=== PATIENT | male | born 1955 | race Caucasian/White ===

== ENCOUNTER 2016-10-24 23:04 | Observation (INO) | payer MEDICARE, OTHER ==
[~2016-10-24] VITALS: Ht 175.3 cm; Wt 100.0 kg
[~2016-10-24 23:04] MED LIST: EMTRTAB6 PO
[2016-10-24 23:17] VITALS: BP 150/92; PULSE 62; RESP 20; TEMP 97.7; O2SAT 96
[2016-10-24 23:49] VITALS: BP 150/92; PULSE 62; RESP 20; TEMP 97.7; O2SAT 95
--- NOTE | 2016-10-24 23:50 | PD ---
HPI Chief Complaint: Complaint Time Seen by Provider: 23:09 Travel History International Travel<30 days: No Contact w/Intl Traveler<30days: No History of Present Illness HPI The patient is 61 year old male who presents to the [facility] emergency department with a history of difficulty urinating that he reports began 2 days ago. He reports that he has had dribbling of urine as well as difficulty starting his stream of urine. The patient reports that he has a history of prostatitis in the past and urinary tract infections. The patient reports that he also has a history of kidney stones. Today around noon he began to have nausea and vomiting along with pain in the right side of his pelvis that radiates into the right groin, right testicle. He denies having any swelling associated with this. He reports that he became concerned that he may have a kidney stone and thus went to the [place] emergency department for evaluation and treatment. A workup ensued, however that facility had no ultrasound capability. The patient had continued intractable pain in spite of use of hydromorphone. There was a concern that the patient may have a testicular torsion, therefore the patient's transferred over for ultrasound and admission. The patient reports having had nausea and vomiting approximately 20 times today. He denies having any diarrhea. His last bowel movement was yesterday. The patient's history is, located by having HIV, however he was diagnosed in 1983 and has been on retroviral medications with a CD4 count that reportedly is 900-1000 and a viral load that is undetectable. The patient denies any recent fevers, cough, congestion, neck pain, chest pain, shortness of breath, or neurologic symptoms. 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 The patient had an inferior vena caval filter placed after that was discontinued off of his blood thinners. The patient has had kidney stones, prostatitis, urinary tract infections, history of HIV, history of a hydrocele status post surgical repair. Cardiac Catheterization: Yes Deep Vein Thrombosis: Yes (AND PE) Immune Disorder: Yes (HIV+) Inguinal Hernia: Yes Kidney Stones: Yes Neurologic: Yes (SUBDURAL HEMATOMA) Past Surgical History Narrative Surgical The patient's past surgical history is significant for bilateral inguinal hernia repair, IVC filter placement cholecystectomy, cardiac catheterization with stent placements, appendectomy, hydrocele removal. Appendectomy: Yes Body Medical Devices: IVC FILTER Cholecystectomy: Yes Coronary Stent: Yes (X8) Other Surgery: Yes (INGUINAL HERNIA REP W/ MESH) Social History Alcohol Use: No Tobacco Use: No Substance Use: No Allergies-Medications (Allergen,Severity, Reaction): Coded Allergies: Ativan (Verified Allergy, Severe, 10/24/16) Haldol (Verified Allergy, Severe, 10/24/16) Reglan (Verified Allergy, Severe, 10/24/16) Reported Meds & Prescriptions Reported Meds & Active Scripts Active Reported Complera (Qdpbzjzzniaod-Nnswkbmxuuh-Rgjrosmkk Disoprox) 200-25-300 Mg Tab 1 Tab PO DAILY Review of Systems Except as stated in HPI: all other systems reviewed are Neg General / Constitutional: Positive: Chills, No: Fever Eyes: No: Visual changes HENT: No: Headaches Cardiovascular: No: Chest Pain or Discomfort Respiratory: No: Shortness of Breath Gastrointestinal: Positive: Nausea, Vomiting, Abdominal Pain, No: Diarrhea, Hematemesis, Hematochezia, Constipation, Changes in Bowel Habits, Indigestion, Dysphagia, Loss of Appetite Genitourinary: Positive: Urgency, Frequency, Dysuria, Hesitancy, Dribbling Musculoskeletal: No: Pain Skin: No Rash Neurologic: No: Weakness, Focal Abnormalities, Change in Mentation, Slurred Speech, Sensory Disturbance Psychiatric: No: Depression Endocrine: No: Polydipsia Hematologic/Lymphatic: No: Easy Bruising Physical Exam Narrative General: The patient is a well-developed well-nourished male in no acute distress. Head and Neck exam: Head is normocephalic atraumatic. Eyes: EOMI, pupils are equal round and reactive to light. Nose: Midline septum with pink mucous membranes Mouth: Dentition unremarkable. Moist mucus membranes. Posterior oropharynx is not erythematous. No tonsillar hypertrophy. Uvula midline. Airway patent. Neck: No palpable lymphadenopathy. No nuchal rigidity. No thyromegaly. Cardiovascular: Regular rate and rhythm without murmurs, gallops, or rubs. Lungs: Clear to auscultation bilaterally. No wheezes, rhonchi, or rales. Abdomen: Soft, with tenderness on palpation along the right inguinal line, overlying an area of scar from prior inguinal hernia repair, no palpable recurrent hernia. No guarding, rebound, or rigidity. Normal bowel sounds are audible. No other tenderness on palpation of the other quadrants of the abdomen. Negative Parks' s sign. Extremities: No clubbing, cyanosis, or edema. 2+ pulses in all 4 extremities. No calf tenderness on palpation. Back: No costovertebral angle tenderness to palpation. Neurologic Exam: Grossly nonfocal. Skin Exam: No rash noted. Intact skin that is warm and dry. Genital exam: The patient on examination of the genital area has no evidence of swelling. The patient reports tenderness on palpation of the posterior aspect of the right testicle overlying the epididymis. There is no erythema, edema, or crepitus. There are no lesions or pointing. Data Data Last Documented VS Vital Signs Date Time Temp Pulse Resp B/P Pulse Ox O2 Delivery O2 Flow Rate FiO2 10/25/16 00:28 60 18 156/85 90 Room Air 10/24/16 23:49 97.7 Orders Sodium Chlor 0.9% 1000 Ml Inj (Ns 1000 M (10/25/16 00:15) Hydromorphone Pf Inj (Dilaudid Pf Inj) (10/25/16 00:15) Ondansetron Inj (Zofran Inj) (10/25/16 00:15) Cefepime Inj (Maxipime Inj) (10/25/16 00:01) Us Testicles W Doppler (10/25/16 23:08) Hydromorphone Pf Inj (Dilaudid Pf Inj) (10/25/16 01:45) Admit Order (Ed Use Only) (10/25/16 02:14) MDM Medical Decision Making Medical Screen Exam Complete: Yes Emergency Medical Condition: Yes Medical Record Reviewed: Yes Differential Diagnosis Epididymitis, versus prostatitis, versus hemorrhagic cystitis, versus testicular torsion, versus orchitis Narrative Course During the course of the patients emergency department visit, the patients history, examination, and differential diagnosis were reviewed with the patient. The patient had IV access obtained and blood work sent for analysis. The patient's electronic medical record was reviewed. The patient's evaluation at the [facility] emergency department was reviewed. The patient was noted to have a white count of 7.8, hemoglobin 17.8, platelets 188 with 56.4 neutrophils , monocytes 33.7, CMP is remarkable for a BUN of 12, creatinine 1.10, urinalysis reveals trace ketones, 6-8 wbc's rare clumps and bacteria many mucus , culture indicated. CT scan done at the other facility reveals no evidence of hydronephrosis or ureteral calculi identified. The patient was initially provided normal saline IV fluids, hydromorphone for pain, Zofran for nausea. The patient was given Cipro at the other facility. An ultrasound was ordered upon the patient's arrival to rule out testicular torsion. The patient was provided normal saline at 100 mL/h, hydromorphone 0.5 mg IV for recurrent pain, Zofran 4 mg IV. The patient reports that he had trouble tolerating the Cipro that was given IVreportedly experiencing chills and diaphoresis, therefore the antibiotic was changed to cefepime 2 g IV. This was administered in this emergency department. The patient's ultrasound of the scrotum reveals moderate size simple left hydrocele, no other acute abnormality. The patients results were discussed with the patient, including the plan of care. I explained that further testing and/ or monitoring is indicated based on the patients history, examination, and/ or laboratory findings. Therefore, I recommended admission for additional evaluation. The patient expressed understanding and was agreeable with this plan. The patient was admitted to the hospital in stable condition and [facility] Physician Communication Physician Communication The patient's case was discussed with , who did agree to admit the patient for further evaluation and treatment at this time. Diagnosis Primary Impression: Urinary tract infection Qualified Code: N39.0 - Urinary tract infection without hematuria, site unspecified Additional Impressions: Right groin pain Scrotal pain Admitting Information Admitting Physician Requests: Observation Rayna Clayton MD October 24, 2016 23:50
[2016-10-25] MEDS ORDERED: CEFEPIME INJ 2,000 MG in SODIUM CHLORIDE 0.9% INJ 100 ML IV STA (00:01)
[2016-10-25] MEDS ORDERED: ONDANSETRON HCL 4 MG/2 ML VIAL IV PUSH ONE (00:15)
[2016-10-25] MEDS ORDERED: SODIUM CHLOR 0.9% 1000 ML INJ 1,000 ML IV SCH (00:15)
[2016-10-25] MEDS ORDERED: HYDROmorphone HCL PF 1 MG/ML VIAL IV PUSH ONE ×2 (00:15→01:45)
[2016-10-25 00:28] VITALS: BP 156/85; PULSE 60; RESP 18; O2SAT 90
--- NOTE | 2016-10-25 02:01 | RADRPT ---
EXAM DATE/TIME: 10/25/2016 01:23 [facility] COMPARISON: No previous studies available for comparison. INDICATIONS : Right testicle pain. MEDICAL HISTORY : HIV. Renal calculi. Subdural hematoma. Deep vein thrombosis. Pulmonary emboli. Inguinal hernia. Prost atitis. SURGICAL HISTORY : Appendectomy. Cholecystectomy.Cardiac cath. Coronary stent x 8. Inguinal hernia repair with mesh. IVC filter. Hydrocele removal. ENCOUNTER: Initial ACUITY: 1 day PAIN SCORE: 10/10 LOCATION: Bilateral testicles. MEASUREMENTS: RIGHT TESTICLE: 4.6 x 3.0 x 2.7cm LEFT TESTICLE: 4.5 x 3.8 x 3.1cm FINDINGS: RIGHT TESTICLE: Homogeneous echotexture without intra or extratesticular mass. Blood flow is symmetric and within no rmal limits. No hydrocele or varicocele. Epididymis is within normal limits. A small focus of extra testicular calcification is seen. No mass. LEFT TESTICLE: Homogeneous echotexture without intra or extratesticular mass. Blood flow is symmetric and within no rmal limits. A moderate size left simple hydrocele. No varicocele. Epididymis is within normal limi ts. An 8 mm simple epididymal head cyst. SCROTUM: Within normal limits. CONCLUSION: 1. Moderate size simple left hydrocele. No acute abnormality. Tobias Wilson Jr., MD on October 25, 2016 at 1:58 Board Certified Radiologist. This report was verified electronically.
[2016-10-25] MEDS ORDERED: SODIUM CHLORIDE 0.9% FLUSH 10 ML FLUSH IV FLUSH PRN (03:00)
[2016-10-25] MEDS ORDERED: NALOXONE HCL 0.4 MG/ML AMP IV PRN (03:00)
[2016-10-25] MEDS ORDERED: oxyCODONE/ACETAMINOPHEN 5 MG/325 MG TAB PO PRN (03:00)
[2016-10-25] MEDS ORDERED: ONDANSETRON HCL 4 MG/2 ML VIAL IVP PRN (03:00)
[2016-10-25] MEDS ORDERED: ACETAMINOPHEN 325 MG TAB PO PRN (03:00)
--- NOTE | 2016-10-25 04:02 | HHI.HP ---
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 Patient reports that 2-3 days ago he started having difficult urinating had to sit and lean forward to pass urine. Yesterday patient started having increasing pain in scrotal pain R>L with radiation to right groin and into the lower back. Pain worse with coughing or movement. Only able to pass small amount of urine at a time. Patient does have associated nauseated with drinking fluids. Denies hematuria, fevers, chills, penile discharge, SOB or chest pain. Patient does not have a local urologist. 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 had subdural hematoma then IVF filter placed, cardiac stents x 8 , kidney stones 2012, December 2015 had parostitis with associated sepsis and hydrocele requiring surgical intervention Past Surgical History cholecystectomy appendectomy bilateral inguinal hernia repair with mesh IVC filter Reported Medications Complera (Irowjcvdqhjhq-Mpvjyrewnvv-Fpcueckzz Disoprox) 200-25-300 Mg Tab 1 Tab PO DAILY Allergies: Coded Allergies: Ativan (Verified Allergy, Severe, 10/24/16) Haldol (Verified Allergy, Severe, 10/24/16) Reglan (Verified Allergy, Severe, 10/24/16) Active Ordered Medications Current Medications Medications (Trade) Dose Ordered Sig/Jeremy Route Start Time Stop Time Status Last Admin (NS 1000 ml Inj) 1,000 ml @ 100 mls/hr Q10H IV 10/25/16 00:15 10/25/16 00:23 (NS Flush) 2 ml UNSCH PRN IV FLUSH 10/25/16 03:00 (NS Flush) 2 ml BID IV FLUSH 10/25/16 09:00 (Tylenol) 650 mg Q4H PRN PO 10/25/16 03:00 (Zofran Inj) 4 mg Q6H PRN IVP 10/25/16 03:00 (Narcan Inj) 0.4 mg UNSCH PRN IV 10/25/16 03:00 Oxycodone/ Acetaminophen 1 tab 1 tab Q4H PRN PO 10/25/16 03:00 (Cipro 400 Mg Premix) 200 ml @ 200 mls/hr Q12H IV 10/25/16 10:00 Family History grandfather and father had prostate CA. Family history also includes HTN, CAD, hyperlipidemia Social History ETOH- in college tobacco- denies Illicit drugs- denies Physical Exam Vital Signs Vital Signs Date Time Temp Pulse Resp B/P Pulse Ox O2 Delivery O2 Flow Rate FiO2 10/25/16 00:28 60 18 156/85 90 Room Air 10/24/16 23:49 97.7 62 20 150/92 95 10/24/16 23:17 97.7 62 20 150/92 96 10/24/16 23:17 62 20 Physical Exam GENERAL: This is a well-nourished, well-developed patient, appear to have pain out of proportion to exam SKIN: No rashes, ecchymoses or lesions. Cool and dry. HEAD: Atraumatic. Normocephalic. No temporal or scalp tenderness. EYES: Extraocular motions intact. No scleral icterus. No injection or drainage. CARDIOVASCULAR: Regular rate and rhythm without murmurs, gallops, or rubs. RESPIRATORY: Clear to auscultation. Breath sounds equal bilaterally. No wheezes , rales, or rhonchi. GASTROINTESTINAL: Abdomen soft, non-tender, nondistended. No hepato-splenomegaly , or palpable masses. No guarding. GENITOURINARY: severe scrotal pain worse with palpation. slight edema R testicle MUSCULOSKELETAL: Extremities without clubbing, cyanosis, or edema. No joint tenderness, effusion, or edema noted. No calf tenderness. Negative Homans sign bilaterally. NEUROLOGICAL: Awake and alert. Motor and sensory grossly within normal limits. Five out of 5 muscle strength in all muscle groups. Normal speech. Imaging Last Impressions Scrotum Ultrasound 10/25/16 8615 Signed Impressions: Service Date/Time: Tuesday, October 25, 2016 01:23 - CONCLUSION: 1. Moderate size simple left hydrocele. No acute abnormality. 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 Patient reports that 2-3 days ago he started having difficult urinating had to sit and lean forward to pass urine. Yesterday patient started having increasing pain in scrotal pain R>L with radiation to right groin and into the lower back. Prostatitis UTI Cefepime 2 grams x 1 in ER continue Ciprofloxacin IV Q12H consult urology Percocet and Toradol as needed for pain STAT scrotal US reveals: Moderate size simple left hydrocele. No acute abnormality. CT abdomin/Pelvic reveals: No evidence of kidney stone or hydronephrosis HIV- continue home medication DVT prophylasis with SCD/TEDs discussed with ER provider, nursing, patient and family member at bedside Written by Tiffanie Villagomez, acting as scribe for Dr. Díaz on 10/25/16 at 04 :18. This note was transcribed by scribe [Tiffanie Villagomez]. I, Dr. Adriane Díaz personally performed the history, physical exam, and medical decision making; and confirmed the accuracy of the information in the transcribed note. Authenticated by Dr. Adriane Díaz on 10/25/16 at 0420. Problem Qualifiers (1) Urinary tract infection: Qualified Code: N39.0 - Urinary tract infection without hematuria, site unspecified Tiffanie Villagomez October 25, 2016 04:02 Adriane Díaz MD October 25, 2016 07:38
[2016-10-25] MEDS ORDERED: KETOROLAC TROMETHAMINE 60 MG/2 ML (IM) VIAL IM PRN (04:15)
[2016-10-25 04:58] VITALS: BP 152/83; PULSE 57; RESP 16; O2SAT 97
[2016-10-25] MEDS ORDERED: EMTRICITABINE/TENOFOVIR 200 MG/300 MG TAB PO SCH (09:00)
[2016-10-25] MEDS ORDERED: TENOFOVIR DISOPROXIL FUMARATE PO SCH (09:00)
[2016-10-25] MEDS ORDERED: SODIUM CHLORIDE 0.9% FLUSH 10 ML FLUSH IV FLUSH SCH (09:00)
[2016-10-25] MEDS ORDERED: RILPIVIRINE PO SCH (09:00)
[2016-10-25] MEDS ORDERED: EMTRICITABINE PO SCH (09:00)
[2016-10-25] MEDS ORDERED: RILPIVIRINE 25 MG TAB PO SCH (09:00)
[2016-10-25] MEDS ORDERED: CIPROFLOXACIN 400 MG PREMIX 200 ML IV SCH (10:00)
[2016-12-14] MEDS ORDERED: EMTR1TAB2 PO (14:48)
[2016-12-14] MEDS ORDERED: HYDR-3288 PO (17:11)
[2016-12-14] MEDS ORDERED: ZANA2CAP PO (17:11)
== END 2016-10-25 05:38 | disposition left against medical advice (07) ==
LOC: NEPC 23:04 → NEDA 10-25 02:15 → NEPHCDU 10-25 05:10
PROVIDERS: ADMIT Family Medicine; ATTEND Family Medicine
DX: N39.0 Urinary tract infection, site not specified (principal); N41.0 Acute prostatitis; N50.82 Scrotal pain; Z86.711 Personal history of pulmonary embolism; Z21 Asymptomatic human immunodeficiency virus [HIV] infection status; Z86.718 Personal history of other venous thrombosis and embolism; Z88.8 Allergy status to other drugs, medicaments and biological substances
CPT/HCPCS: 74176; 76870; 80053; 81001; 85025; 87040; 87086; 93975; 96361; 96365; 96375; 96376; 99285; G0378; J0692; J0744; J1170; J1885; J2405; J7030

== ENCOUNTER 2016-12-22 21:50 | Observation (INO) | payer MEDICARE, OTHER ==
[~2016-12-22 21:50] MED LIST changes: +EMTR1TAB2 PO; -EMTRTAB6 PO; +HYDR-3288 PO; +ZANA2CAP PO
[2016-12-22] MEDS ORDERED: SODIUM CHLORIDE 0.9% FLUSH 10 ML FLUSH IV FLUSH PRN ×2 (23:45)
[2016-12-22] MEDS ORDERED: ACETAMINOPHEN 500 MG CPLT PO PRN (23:45)
[2016-12-22] MEDS ORDERED: ONDANSETRON HCL 4 MG/2 ML VIAL IV PRN (23:45)
[2016-12-23] MEDS ORDERED: NITROGLYCERIN 2% OINT 1 GM PACKET TOPICAL SCH
== END 2016-12-22 23:44 | disposition left against medical advice (07) ==
LOC: NEDDLT 21:50 → NEPFCDU 22:00
PROVIDERS: ADMIT Internal Medicine Interventional Cardiology; ATTEND Internal Medicine Interventional Cardiology
DX: R07.9 Chest pain, unspecified (principal); Z53.21 Procedure and treatment not carried out due to patient leaving prior to being seen by health care provider; R94.31 Abnormal electrocardiogram [ECG] [EKG]; R00.0 Tachycardia, unspecified
CPT/HCPCS: 70498; 71010; 71275; 74174; 80053; 80307; 82550; 83735; 83880; 84484; 85025; 85379; 85610; 85652; 85730; 93005; 96374; 99285; J1170; J2270; Q9967; 99281

== ENCOUNTER 2017-05-02 10:38 | Inpatient (IN) | payer MEDICARE, OTHER ==
[2017-05-02] VITALS (11 sets, daily range): BP systolic 127–189; BP diastolic 85–109; PULSE 53–78; RESP 16; TEMP 98–98.6; O2SAT 94–95
[~2017-05-02] VITALS: Ht 175.3 cm; Wt 90.2 kg
[~2017-05-02 10:38] MED LIST changes: +LOPE-1 PO; +TYLE325T PO
[2017-05-02] MEDS ORDERED: SODIUM CHLORIDE 0.9% FLUSH 10 ML FLUSH IV FLUSH PRN (11:00)
[2017-05-02] MEDS ORDERED: NALOXONE HCL 0.4 MG/ML AMP IV PUSH PRN (11:00)
[2017-05-02] MEDS ORDERED: ASPI-516 CHEW (12:42)
--- NOTE | 2017-05-02 13:10 | HHI.HP ---
[facility] Matt Vega MD Admission Diagnosis Diagnoses: History of Present Illness has 8 stents and numerous caths 8am woke up , drank water and had chest pain was uncomfortable most of the night dizzyy, 2-3 weeks sweats at night left arm adn tingling ' similar to previous no sob no radiation to back BP was high 200s/100s went to [place] right away sdh and gets migranes with ntg usually does not help on ntg drip adn did not help either morphine did last angiogram - more than a year- cardiology in [facility] usually stress test negative claims last time here was in december 2016 our visit showed - cdu admission that time had prostate problem - not getting blood flow to testicles, was afraid of torsion then- was transferred here from [place] then too, for [place] and no problem then - was ER to ER visit denies other symptoms 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 - but was taken off because of dizziness and bradycardia so not on any hypertensives Review of Systems Except as stated in HPI: all other systems reviewed are Neg Past Family Social History Past Medical History CAD - stents x 8 Sleep apnea dvts x 2 pex 1 hiv avascular necrosis bilateral femoral heads sciatica hydrocele repaired 20yrs ago neuropathy prostatitis hep B - was treated Past Surgical History balloon angioplasty 2014 renal stone bilateral hernia cardiac stents subdural hematoma , craniotomy 2012 from syncopal episode while on coumadin cholecystectomy partial exoslect feet hydrocele tarsal ivc filter Allergies: Coded Allergies: haloperidol (Unverified Allergy, Severe, Twitching, 05/02/17) lorazepam (Unverified Allergy, Severe, Confusion, 05/02/17) metoclopramide (Unverified Allergy, Severe, Nausea/Vomiting, 05/02/17) Family History htn, cholesterol, ppm, cad in general father- prostate cancer Social History never smoked, was exposed to second smoke ; 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 SKIN: No rashes, ecchymoses or lesions. Cool and dry. HEAD: Atraumatic. Normocephalic. No temporal or scalp tenderness. EYES: Pupils equal round and reactive. Extraocular motions intact. No scleral icterus. No injection or drainage. ENT: Nose without bleeding, purulent drainage or septal hematoma. Throat without erythema, tonsillar hypertrophy or exudate. Uvula midline. Airway patent. NECK: Trachea midline. No JVD or lymphadenopathy. Supple, nontender, no meningeal signs. CARDIOVASCULAR: Regular rate and rhythm without murmurs, gallops, or rubs. RESPIRATORY: Clear to auscultation. Breath sounds equal bilaterally. No wheezes , rales, or rhonchi. GASTROINTESTINAL: Abdomen soft, non-tender, nondistended. No hepato-splenomegaly , or palpable masses. No guarding. MUSCULOSKELETAL: Extremities without clubbing, cyanosis, or edema. No joint tenderness, effusion, or edema noted. No calf tenderness. Negative Homans sign bilaterally. NEUROLOGICAL: Awake and alert. Cranial nerves II through XII intact. Motor and sensory grossly within normal limits. Five out of 5 muscle strength in all muscle groups. Normal speech. Caprini VTE Risk Assessment Caprini Risk Assessment Model Point Value = 1 Point Value = 2 Point Value = 3 Point Value = 5 Age 41-60 Minor surgery BMI > 25 kg/m2 Swollen legs Varicose veins or History of unexplained or recurrent spontaneous Oral contraceptives or hormone replacement Sepsis (< 1 month) Serious lung disease, including pneumonia (< 1 month) Abnormal pulmonary function Acute myocardial infarction Congestive heart failure (< 1 month) History of inflammatory bowel disease Medical patient at bed rest Age 61-74 Arthroscopic surgery Major open surgery (> 45 min) Laparoscopic surgery (> 45 min) Malignancy Confined to bed (> 72 hours) Immobilizing plaster cast Central venous access Age >= 75 History of VTE Family history of VTE Factor V Leiden Prothrombin [id number] Lupus anticoagulant Anticardiolipin antibodies Elevated serum homocysteine Heparin-induced thrombocytopenia Other congenital or acquired thrombophilia Stroke (< 1 month) Elective arthroplasty Hip, pelvis, or leg fracture Acute spinal cord injury (< 1 month) Prophylaxis Regimen Total Risk Factor Score Risk Level Prophylaxis Regimen 0-1 Low Early ambulation 2 Moderate Order ONE of the following: *Sequential Compression Device (SCD) *Heparin 5000 units SQ BID 3-4 Higher Order ONE of the following medications: *Heparin 5000 units SQ TID *Enoxaparin/Lovenox 40 mg SQ daily (WT < 150 kg, CrCl > 30 mL/min) *Enoxaparin/Lovenox 30 mg SQ daily (WT < 150 kg, CrCl > 10-29 mL/min) *Enoxaparin/Lovenox 30 mg SQ BID (WT < 150 kg, CrCl > 30 mL/min) AND/OR *Sequential Compression Device (SCD) 5 or more Highest Order ONE of the following medications: *Heparin 5000 units SQ TID (Preferred with Epidurals) *Enoxaparin/Lovenox 40 mg SQ daily (WT < 150 kg, CrCl > 30 mL/min) *Enoxaparin/Lovenox 30 mg SQ daily (WT < 150 kg, CrCl > 10-29 mL/min) *Enoxaparin/Lovenox 30 mg SQ BID (WT < 150 kg, CrCl > 30 mL/min) AND *Sequential Compression Device (SCD) Assessment and Plan Assessment and Plan Impression: unstable angina suspects malingering for pain meds - pt has previous visits here , most recent 04/27 to 04/28 admission- which patient denies hypertensive emergency with chest pain - likely from not taking bp meds possible polycythemia Plan: drug screen d/c nitro drip as not working and having headaches though suspecting malingering, for now, will give morphine small dose as BP is high cardio consult npo start heparin drip labetalol PRN IV for BP>170/90 do not lower BP too fast hematology consult for possible polycythemia resume home meds Discussed Condition With patient, partner at bedside, nursing staff Physician Certification Order for Inpatient Services The services are ordered in accordance with Medicare regulations or non- Medicare payer requirements, as applicable. In the case of services not specified as inpatient-only, they are appropriately provided as inpatient services in accordance with the 2-midnight benchmark. days is the estimated time the patient will need to remain in the hospital, assuming treatment plan goals are met and no additional complications. Doroteo Campbell MD May 02, 2017 13:10
[2017-05-02] MEDS ORDERED: HEPARIN-D5W 25,000 U/250 ML 250 ML IV PRN ×2 (13:45→14:30)
[2017-05-02] MEDS ORDERED: LABETALOL HCL 100 MG/20 ML VIAL IV PUSH PRN (14:00)
[2017-05-02] MEDS ORDERED: NITROGLYCERIN 0.4 MG SL 25 TABS/BTL SL PRN (14:00)
[2017-05-02] MEDS ORDERED: HEPARIN SODIUM - IV 10,000 UNITS/10 ML VIAL IV PUSH ONE ×2 (14:00→14:30)
[2017-05-02] MEDS ORDERED: HEPARIN-NS/PF INJ 1,000 ML ONE (14:28)
[2017-05-02] MEDS ORDERED: MIDAZOLAM HCL 2 MG/2 ML VIAL ONE ×3 (14:29→15:23)
--- NOTE | 2017-05-02 15:09 | MB ---
cc: MELONIE SERVIN DATE OF CONSULTATION: 05/02/2017 HISTORY OF PRESENT ILLNESS Mr. Branch is a 61-year-old white male with history of coronary artery disease and placement of eight stents last year and a half ago. He was on aspirin and Brilinta one year after the last stent. He woke up yesterday morning with substernal chest discomfort. He had chest pain last night and left arm paresthesia. This was similar to his previous symptoms prior to his stents. He was hypertensive. 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 PAST MEDICAL HISTORY 1. Coronary artery disease, status post stent placement. 2. Sleep apnea. 3. History of DVT. 4. HIV positive. 5. Hepatitis B, treated. 7. Neuropathy. 8. Hydrocele. 9. Sciatica. 10.Avascular necrosis of bilateral femoral heads. 11.History of nephrolithiasis. 12.Hernia. 13.History of subdural hematoma. 14.Craniotomy in 2012 when he fell and hit his head while on Coumadin. 15.History of cholecystectomy. 16.IVC filter placement. MEDICATIONS 1. Odefsey. 2. Baby aspirin. ALLERGIES 1. HALOPERIDOL. 2. LORAZEPAM. 3. METOCLOPRAMIDE. SOCIAL HISTORY The patient lives with a domestic partner. He drinks alcohol occasionally. He never smoked. FAMILY HISTORY Negative for coronary artery disease. REVIEW OF SYSTEMS Otherwise negative. PHYSICAL EXAMINATION VITAL SIGNS: Blood pressure 189/109, pulse 74 and regular. HEENT: Negative. NECK: 2+ carotid upstrokes. No bruits. LUNGS: Clear. HEART: Regular with no murmur, gallop or rub. ABDOMEN: Soft. No bruits. EXTREMITIES: Without edema. 2+ distal pulses. NEUROLOGIC: Grossly nonfocal. EKG EKG was reviewed and showed normal sinus rhythm with normal axis and intervals, inferior Q-waves. LABORATORY Hemoglobin 19.1. Potassium 4.9. Creatinine 1.0. AST 37, ALT 53. Troponin less than 0.02. BNP less than 5. DIAGNOSIS 1. Acute coronary syndrome/unstable angina. 2. Coronary artery disease, history of coronary stenting. 3. HIV. 4. Sleep apnea. 5. History of DVT. DISPOSITION Mr. Branch will undergo cardiac catheterization and coronary intervention if necessary. He understands the risks and benefits, and wishes to proceed. MD CARMELO Macias /2:37 PM /2:49 PM URMILA
[2017-05-02] MEDS ORDERED: HEPARIN SODIUM - IV 10,000 UNITS/10 ML VIAL ONE (15:23)
[2017-05-02] MEDS ORDERED: TICAGRELOR 90 MG TAB PO ONE (15:49)
[2017-05-02] MEDS ORDERED: SODIUM CHLOR 0.9% 1000 ML INJ 1,000 ML IV SCH (16:02)
--- NOTE | 2017-05-02 16:12 | CATHPROC ---
[place] HIS Report Study Information Study Number Admission Scheduled Start Study Start [id number] May 02 2017 1:06PM 05/02/2017 May 02 2017 2:21PM [place] Service Cardiac Catheterization Admit Source Facility Department Emergency department [facility] - Particle Board Supervisor Physician and Clinical Staff Initial Paula Osman Automation Qa Tester Morris Pena,ZE Recorder Chris Drew,RT(R) Scrub Livia Maki,MANAGER SCHEDULING TECH2 Procedures Performed Procedure Location (Site) Vessel Name Angiogram LV LV Ventricle Coronary Angiograms LCA Left Coronary Coronary Angiograms RCA Right Coronary Drug Eluting Inflatio CIRC Prox CIRC L Heart Cath PTCA CIRC Prox CIRC PTCA ADD ON'S Wire insertion Fem Art (right) Femoral Art Equipment Time Pastry Supervisor Description Size Mfg Part Number Used/Scraped WIRE, BALANCE MIDDLEWEIGHT [id number] 15:25 [employer] 190CM Used 190CM ([facility]) *[id number] TRANSDUCER, TRUWAVE [id number] 14:27 LOPEZ COLE * Used W/STOCKCOCK *[id number] [id number] *[id number] [id number] *[id number] [id number] *[id number] [phone] *[id number] 670-056-00 *[id number] 670-060-00 *[id number] 670-060-00 *[id number] [phone] *[id number] 15:47 DAIG/[employer]. [employer] MEDICAL ANGIOSEAL, FR6 VIP FR 6 Used *[id number] 14:27 MED[employer] PACK, CCL CUSTOM * Used *[id number] 14:27 Becual PACER PEN, SKIN DUAL W/ RULER * Used *[id number] 15:36 MEDTRONIC BALLOON, 2.5 X 12MM EUPHORA 12MM Used *[id number] 15:40 MEDTRONIC STENT, 2.5 12MM MARCEL 2.5 12MM Used *[id number] 15:22 [email or web address] MEDICAL 30 KADY INDEFLATOR Used *[id number]- 15:23 [email or web address] MEDICAL SHEATH, FR6.5 PRELUDE 11CM FR 6.5 038ACT Used *[id number]-11- 15:25 [email or web address] MEDICAL SHEATH, FR6.5 PRELUDE 11CM FR 6.5 038ACT Used *[id number] 14:27 [email or web address] MEDICAL WIRE, 3MMJ .035 180CM 180CM Used *[id number] PROBE COVER, STERILE [id number] 14:27 [employer] MEDICAL * Used ULTRASOUND W/ GEL *[id number] 14:27 NAMIC MANIFOLD, 4 PORT * Used *[id number] 14:27 NAMIC TUBING, HIGH PRESSURE 48" 48" Used *[id number] 14:27 NYCOMED OMNIPAQUE, 350 MG, 150ML 150ML [id number] Used 15:05 NYCOMED OMNIPAQUE, 350 MG, 50ML 50ML [id number] Used [id number] 14:27 HAGAN [employer] BLANKET,WARM AIR CCL * Used *[id number] 14:27 TERUMO MEDICAL SHEATH, FR5 TERUMO (10CM) FR 5 Used *[id number] Equipment Model, Serial, Lot Number and Expiration Data Description Model Number Serial Number Lot Number Expiration Date ANGIOSEAL, FR6 VIP [id number] 02-16-2018 STENT, 2.5 12MM MARCEL [id number] 12-13-2018 History: Current Medications Medication Dosage/Unit Route Frequency Last Date/Time Taken ASA LIPITOR BRILINTA History: Allergies Allergy Reaction lorazepam metoclopramide Haldol History: Risk Factors Family History of Hypertension Dyslipidemia Previous [place] Previous Heart Failure Premature CAD Yes Yes Yes No No Prior Valve Prior PCI Prior PCIDate Prior CABG Surgery No Yes 02/18/2016 No Peripheral Artery Chronic Lung Diabetes Disease Disease No Yes No History: Stress Tests Stress or Imaging Studies Performed No History: Other Disease Selection Items CAD HIV Stroke History: Other Current Smoker No Labs Hgb (g/dl) Hct (%) RBC (MIL/MM3) WBC (l/cumm) Platelets (thousands) 11.60-17.00 35.00-51.00 4.00-5.90 4.00-11.00 150.00-450.00 19.1 52.9 4.7 6.3 176 Glucose (mg/dl) BUN (mg/dl) Creatinine (mg/dl) BUN:Creatinine (1:x) 74.00-106.00 7.00-18.00 0.50-1.30 10.00-20.00 115 3 1.0 3 Na (meq/l) K (meq/l) Cl (meq/l) CO2 (mmol/L) Ca (mg/dl) 136.00-145.00 3.50-5.10 98.00-107.00 21.00-32.00 8.50-10.10 141 4.9 107 24.3 9.9 PT (sec) INR (PTT:PT) 9.80-11.60 0.90-1.10 11.4 1.1 Troponin I (ng/ml) CPK (u/l) CPK-MB (ng/ML) 0.02-0.05 26.00-308.00 0.50-3.60 0.02 100 Not Drawn Medication Medication Total Dose (Bolus/Oral) Medication Total Dosage/Unit 1% XYLOCAINE 20 mL BRILINTA 180 mg FENTANYL 125 mcg HEPARIN 7000 units NTG (IC) 200 mcg VERSED 5 mg Medications (Bolus/Oral) Medication Time Given Dosage/Unit Administered By Reason VERSED 05/02/2017 2:48:15 PM 2 mg Ferlitto, Morris 2 mg VERSED given in lab by Morris Pena RN in Left Antecubital via Peripheral IV. Ordered by Paula Bruner. FENTANYL 05/02/2017 2:48:53 PM 50 mcg Ferlijovono, Morris 50 mcg FENTANYL given in lab by Morris Pena RN in Left Antecubital via Peripheral IV. Ordered by Paula Banda. VERSED 05/02/2017 2:54:19 PM 1 mg Ferlitto, Morris 1 mg VERSED given in lab by Morris Pena RN in Left Antecubital via Peripheral IV. Ordered by Paula Bruner. 1% XYLOCAINE 05/02/2017 2:59:58 PM 20 mL Paula Banda 20 mL 1% XYLOCAINE given in lab by Paula Banda in Right Groin via Subcutaneous. Ordered by Paula Devi. VERSED 05/02/2017 3:00:10 PM 0.5 mg Ferlitto, Morris 0.5 mg VERSED given in lab by Morris Pena RN in Left Antecubital via Peripheral IV. Ordered by Paula Tejeda. FENTANYL 05/02/2017 3:00:25 PM 25 mcg Ferlitto, Morris 25 mcg FENTANYL given in lab by Morris Pena RN in Left Antecubital via Peripheral IV. Ordered by Paula Banda. HEPARIN 05/02/2017 3:28:30 PM 7000 units Morris Pena 7000 units HEPARIN given in lab by Morris Pena RN in Left Antecubital via Peripheral IV. Ordered by Paula Banda. FENTANYL 05/02/2017 3:35:24 PM 50 mcg Morris Pena 50 mcg FENTANYL given in lab by Morris Pena RN in Left Antecubital via Peripheral IV. Ordered by Paula Banda. VERSED 05/02/2017 3:35:56 PM 1 mg Morris Pena 1 mg VERSED given in lab by Morris Pena RN in Left Antecubital via Peripheral IV. Ordered by Paula Bruner. NTG (IC) 05/02/2017 3:37:44 PM 200 mcg Livia Maki 200 mcg NTG (IC) given in lab by Livia Maki, MANAGER SCHEDULING TECH2 via Intra-coronary. Ordered by Edel Banda. BRILINTA 05/02/2017 3:47:50 PM 180 mg Morris Pena 180 mg BRILINTA given in lab by Morris Pena RN via Oral. Ordered by Paula Banda. VERSED 05/02/2017 3:50:36 PM 0.5 mg Morris Pena 0.5 mg VERSED given in lab by Morris Pena RN in Left Antecubital via Peripheral IV. Ordered by Paula Tejeda. Medication (Drip) Medication Time Given Dosage/Unit Concentration/Unit Diluent (ml) Solution IV Solutions 05/02/2017 2:28:18 PM 0 mL (IV) 500 NaCl .9 IV Solutions given in lab by Morris Pena RN in Left Antecubital via Peripheral IV. Pump/Drip Flow = 20 ml/hr using NaCl .9. Ordered by Paula Banda. Initial Case Assessment Cardiovascular HR Rhythm NIBP 62 sr 154/93 Edema Present Skin color Skin None Normal Warm Dry Circulatory - Right Pulses Dorsalis Pedis Femoral 3 3 Scale (0,1,2,3,4,d) Circulatory - Left Pulses Dorsalis Pedis Femoral 3 3 Scale (0,1,2,3,4,d) Circulatory - Lower Extremities Color Lower Right Color Lower Left Normal Normal Neurological State Oriented to time-place- Alert Moves all extremities person Respiration - General Respiration Rate SpO2 (%) (B/min) 18 95 Final Case Assessment Cardiovascular HR Rhythm NIBP Chest Pain 78 sr 154/87 5 Edema Present Skin color Skin None Normal Warm Dry Circulatory - Right Pulses Dorsalis Pedis Femoral 3 3 Scale (0,1,2,3,4,d) Circulatory - Left Pulses Dorsalis Pedis Femoral 3 3 Scale (0,1,2,3,4,d) Circulatory - Lower Extremities Color Lower Right Color Lower Left Normal Normal Neurological State Lethargic Respiration - General Respiration Rate SpO2 (%) O2 (lpm) (B/min) 8 94 4 Chronological Log Time Study Chronological Log 14:20:46 Patient arrived via Bed. 14:26:04 Patient Name, D.O.B, / Armband Verified By R.N. 14:26:05 Consent signed by the physician and the patient and verified by the Particle Board Supervisor staff. 14:26:07 Pre-op and post- op instructions given; patient acknowledges understanding of instructions. 14:26:12 Verbal Stimulation=2 Physical Stimulation=2 Airway=2 Respiration=2 TOTAL=8. (0=absent, 1=li mited, 2=present) 14:27:12 Presedation assessment performed by Particle Board Supervisor RN. 14:27:15 Patient has been NPO for More than 6Hrs. 14:27:36 Skin Breakdown/none per patient 14:27:47 Patient Warmer Placed on the Table. 14:27:49 Arlen Prominences Protected 14:27:51 A # 18 IV was noted in the Antecubital (left). Grade = 0 14:28:04 A # 18 IV was noted in the Hand (left). Grade = 0 IV Solutions given in lab by Morris Pena, ZE in Left Antecubital via Peripheral IV. Pump/Dri p Flow = 20 ml/hr using 14:28:18 NaCl .9. Ordered by Paula Banda. 14:28:43 History and physical on the chart or being dictated. Vitals capture started with the following parameters, Patient=Adult, Interval=5 min, Initial Pr owytcl=737 mmHg, 14:28:47 Deflation Rate=5 mmHg, Cuff placed on Left Arm 14:30:00 HR=73 bpm, KKIK=273/94 mmhg, SpO2=94.0 %, Resp=16 B/min, Pain=9, Brittni=10 14:31:25 MD arrived. Assessment: Initial Case, HR=62 BPM, Rhythm=sr, CRCK=970/93 mmhg, Edema=None, Color=Normal, Ski n = Warm, Dry Right Pulses: Brendan Ped=3, Femoral=3 Left Pulses: Brendan Ped=3, Femoral=3 14:32:32 Lower Right Extremities: Color=Normal Lower Left Extremities: Color=Normal Neurological: State=Alert, Ox3, RIBEIRO Respiration: Resp=18 B/min, SpO2=95 % 14:34:24 HR=68 bpm, XSON=622/93 mmhg, SpO2=95.0 %, Resp=14 B/min, Brittni=10 14:34:43 Reference ECG taken 14:36:08 Bilateral groins prepped with 2% chlorhexidine, and draped after a 3 min. waiting time. 14:36:35 Contrast Scanned 14:39:23 HR=58 bpm, ECNC=209/92 mmhg, SpO2=96.0 %, Resp=15 B/min, Brittni=10 14:42:15 Pressure channel 1 zeroed. 14:44:27 HR=65 bpm, XJXL=771/99 mmhg, SpO2=95.0 %, Resp=20 B/min, Brittni=10 14:47:52 Morris putting patient on 2L O2 14:48:15 2 mg VERSED given in lab by Morris Pena, ZE in Left Antecubital via Peripheral IV. Order ed by Paula Banda. 14:48:53 50 mcg FENTANYL given in lab by Morris Pena RN in Left Antecubital via Peripheral IV. O rdered by Paula Banda. 14:49:28 HR=78 bpm, YQBJ=735/92 mmhg, SpO2=96.0 %, Resp=15 B/min, Brittni=10 14:54:19 1 mg VERSED given in lab by Morris Pena, ZE in Left Antecubital via Peripheral IV. Order ed by Paula Banda. 14:54:25 HR=74 bpm, TIKX=195/86 mmhg, SpO2=92.0 %, Resp=15 B/min, Brittni=9 14:57:57 power injector loaded with 50cc omnipaque by morris laguna and witnessed by jennifer maki 14:58:50 Case Start Time Out. Correct patient, correct procedure, correct physician, power injector loaded with con trast with surgical team 14:59:02 present. Time Out Concurred by MD and individual staff in procedure. 14:59:26 HR=66 bpm, TFDR=218/92 mmhg, SpO2=92.0 %, Resp=22 B/min, Brittni=9 14:59:58 20 mL 1% XYLOCAINE given in lab by Paula Banda in Right Groin via Subcutaneous. Ordered by Paula Banda. 15:00:10 0.5 mg VERSED given in lab by Morris Pena, RN in Left Antecubital via Peripheral IV. Ord ered by Paula Banda. 15:00:25 25 mcg FENTANYL given in lab by Morris Pena, RN in Left Antecubital via Peripheral IV. O rdered by Paula Banda. 15:01:44 Access site was Right Femoral Artery. using ultrasound 15:02:07 A SHEATH, FR5 TERUMO (10CM) FR 5 was advanced into the Fem Art (right) using the Albina te chnique. A PIGTAIL STR. INFINITI CATHETER FR 5 was advanced over a wire. OMNIPAQUE, 350 MG, 150ML 150ML was used for 15:02:35 injections. Recorded Pressure: LV, HR=67, Condition=Condition 1 15:03:58 (Left Ventricle) LV 143/5/8 15:04:09 The LV was injected at 10 cc/sec for a total of 30. OMNIPAQUE, 350 MG, 50ML 50ML used. 15:04:17 HR=69 bpm, WANQ=361/96 mmhg, SpO2=94.0 %, Resp=12 B/min, Brittni=9 Recorded Pressure: LV, Ao, HR=73, Condition=Condition 1 15:05:56 (Left Ventricle) LV 133/3/9, (Aorta) Ao 145/81/107 15:06:29 Catheter was removed A JL 4.0 INFINITI CATHETER FR 5 was advanced over a wire. OMNIPAQUE, 350 MG, 150ML 150ML was us ed for 15:06:31 injections. Recorded Pressure: Ao, HR=82, Condition=Condition 1 15:07:15 (Aorta) Ao 158/91/121 15:07:37 The LCA was injected and visualized at various angles. OMNIPAQUE, 350 MG, 150ML 150ML used . 15:09:14 Catheter was removed A AR MOD INFINITI CATHETER FR 5 was advanced over a wire. OMNIPAQUE, 350 MG, 150ML 150ML was us ed for 15:09:18 injections. 15:09:46 HR=82 bpm, SESW=913/100 mmhg, SpO2=93.0 %, Resp=17 B/min, Brittni=9 15:13:36 The RCA was injected and visualized at various angles. OMNIPAQUE, 350 MG, 150ML 150ML used . 15:14:29 HR=81 bpm, TKKV=620/95 mmhg, SpO2=94.0 %, Resp=22 B/min, Brittni=9 15:15:08 Dr. Banda is reviewing the films. 15:19:30 HR=79 bpm, QAUP=091/89 mmhg, SpO2=94.0 %, Resp=23 B/min, Brittni=9 15:21:32 Dr. Banda is scrubbing back in. 15:22:06 OMNIPAQUE, 350 MG, 50ML 50ML and 30 KADY INDEFLATOR added. 15:23:46 Catheter was removed A SHEATH, FR6.5 PRELUDE 11CM FR 6.5 was exchanged in the Fem Art (right). This was necessary in order to 15:23:49 accomodate a larger catheter. 15:25:02 HR=79 bpm, QGWL=309/94 mmhg, SpO2=95.0 %, Resp=16 B/min, Brittni=9 A XB 4.0 GUIDE CATHETER FR 6 was advanced over a wire. OMNIPAQUE, 350 MG, 150ML 150ML was used for 15:26:25 injections. 15:28:28 Catheter was removed 15:28:30 7000 units HEPARIN given in lab by Morris Pena, ZE in Left Antecubital via Peripheral IV . Ordered by Paula Banda. A XBLAD 3.5 GUIDE CATHETER FR 6 was advanced over a wire. OMNIPAQUE, 350 MG, 150ML 150ML was us ed for 15:28:52 injections. 15:29:28 HR=79 bpm, BKBY=925/93 mmhg, SpO2=95.0 %, Resp=18 B/min, Brittni=9 15:30:27 A WIRE, BALANCE MIDDLEWEIGHT 190CM (BRETT) 190CM was inserted via Fem Art (right). 15:31:46 Activated Clotting Time Drawn 15:32:20 ACT (Normal Range 90-180) = 321 15:34:33 HR=80 bpm, KIMN=901/86 mmhg, SpO2=95.0 %, Resp=18 B/min, Brittni=9 15:35:24 50 mcg FENTANYL given in lab by Morris Pena, RN in Left Antecubital via Peripheral IV. O rdered by Paula Banda. 15:35:56 1 mg VERSED given in lab by Morris Pena, ZE in Left Antecubital via Peripheral IV. Order ed by Paula Banda. 15:36:29 Interventional wire has crossed the lesion A BALLOON, 2.5 X 12MM EUPHORA 12MM was inserted over WIRE, BALANCE MIDDLEWEIGHT 190CM (BRETT) 19 0CM 15:37:03 via the CIRC Prox. A BALLOON, 2.5 X 12MM EUPHORA 12MM over a WIRE, BALANCE MIDDLEWEIGHT 190CM (BRETT) 190CM in the CIRC 15:37:23 Prox was inflated using a 30 KADY INDEFLATOR at 12 kady for 15 sec. 15:37:41 Balloon Removed. 15:37:44 200 mcg NTG (IC) given in lab by Livia Maki, MANAGER SCHEDULING TECH2 via Intra-coronary. Ordered by Paula Banda. 15:39:08 The LCA was injected and visualized at various angles. OMNIPAQUE, 350 MG, 150ML 150ML used . 15:39:30 HR=93 bpm, MWSO=287/71 mmhg, SpO2=94.0 %, Resp=24 B/min, Brittni=9 A STENT, 2.5 12MM MARCEL 2.5 12MM was advanced through a XBLAD 3.5 GUIDE CATHETER FR 6 over a WIR E, 15:41:28 BALANCE MIDDLEWEIGHT 190CM (BRETT) 190CM. A STENT, 2.5 12MM MARCEL 2.5 12MM was deployed using a 30 KADY INDEFLATOR at 15 atmospheres for 23 seconds in 15:41:51 the CIRC Prox. 15:42:43 Morris Mckeon increased O2 to 4L A STENT, 2.5 12MM MARCEL 2.5 12MM was deployed using a 30 KADY INDEFLATOR at 18 atmospheres for 10 seconds in 15:43:18 the CIRC Prox. 15:43:50 Delivery device removed 15:43:58 The LCA was injected and visualized at various angles. OMNIPAQUE, 350 MG, 150ML 150ML use d. 15:44:17 Wire removed 15:44:21 The LCA was injected and visualized at various angles. OMNIPAQUE, 350 MG, 150ML 150ML use d. 15:44:29 HR=86 bpm, LAFV=599/86 mmhg, SpO2=95.0 %, Resp=16 B/min, Brittni=9 15:44:48 Catheter was removed 15:45:10 An injection in the Fem Art (right) was made through the SHEATH, FR6.5 PRELUDE 11CM FR 6.5 . 15:46:36 Betadine used to clean right groin 15:47:16 Sheath removed; pressure applied to access site. over a wire 15:47:29 ANGIOSEAL, FR6 VIP FR 6 placement in the Fem Art (right) jennifer holding for 3 min 15:47:50 180 mg BRILINTA given in lab by Morris Pena RN via Oral. Ordered by Paula Banda. 15:48:00 Sterile dressing applied to site 15:48:31 Case End 15:49:28 HR=86 bpm, BDFA=034/94 mmhg, SpO2=95.0 %, Resp=14 B/min, Pain=5, Brittni=9 15:50:36 0.5 mg VERSED given in lab by Morris Pena, ZE in Left Antecubital via Peripheral IV. Or dered by Paula Banda. 15:54:31 HR=78 bpm, QSTF=652/87 mmhg, SpO2=94.0 %, Resp=7 B/min, Pain=5, Brittni=9 15:58:27 Patient moved to stretcher 15:59:18 Vitals capture stopped. 15:59:43 A Left Heart Cath was performed. 15:59:47 Bedside Report will be given. Patient transported to [facility] Assessment: Final Case, HR=78 BPM, Rhythm=sr, XHXD=114/87 mmhg, Chest Pain=5, Edema=None, [place] r=Normal, Skin = Warm, Dry Right Pulses: Brendan Ped=3, Femoral=3 Left Pulses: Brendan Ped=3, Femoral=3 15:59:50 Lower Right Extremities: Color=Normal Lower Left Extremities: Color=Normal Neurological: State=Lethargic Respiration: Resp=8 B/min, SpO2=94 %, O2=4 lpm 16:00:18 No case complications noted. End Study - Contrast Media Used In Study Contrast Total Opened (mL) Total Used (mL) Total Wasted (mL) Omnipaque 150 150 0 End Study - Maximum Contrast Load Max Contrast Load (mL) 450.9 End Study - Radiation Exposure Fluoro Time (minutes) 5.3 End Study - Sheaths Sheaths Pulled By Sheath Hold Time (min) Paula Banda End Study - Patient Disposition Complications Transferred To Interventional Outcome No Regular Bed successful
[2017-05-02] MEDS ORDERED: ACETAMINOPHEN 325 MG TAB PO PRN (16:15)
[2017-05-02] MEDS ORDERED: MISC INFORMATION XX ONE (16:15)
[2017-05-02] MEDS ORDERED: LIDOCAINE 2% JELLY 5 ML TUBE TOPICAL PRN (16:15)
[2017-05-02] MEDS ORDERED: LIDOCAINE 2% JELLY 30 ML TUBE TOP PRN (16:15)
[2017-05-02] MEDS: MORPHINE SULFATE 2 MG/ML INJ IV PUSH PRN ×2 (17:21→20:54)
--- NOTE | 2017-05-02 19:09 | MB ---
cc: SHAHAB LUCIANO MD DATE OF CONSULTATION 05/02/[address] Campbell REASON FOR CONSULTATION Hematology is consulted to render opinion regarding patient with urethrocytosis. HISTORY OF PRESENT ILLNESS The patient is a 61-year-old male with history of coronary artery disease who presented to the emergency room with complaint of chest pain and left arm paresthesia. He also had dizziness. She had eight stents placed in the past. He was admitted to the hospital for further cardiac workup. He just had another cardiac cath this afternoon. He was noted to have a urethrocytosis with hemoglobin 19.1. He stated that he has been told he has thick blood for many years. At one time, he had some blood drawn when they cristiano 24 valves of blood and he felt better after that. He also endorsed having pruritus which has been going on for several years. He denies any abdominal pain or early satiety. He denies any bleeding. He did have history of multiple blood clots. He was on Coumadin for while but stopped after he fell and had intracerebral bleed. PAST MEDICAL HISTORY 1. Coronary artery disease, 2. Obstructive sleep apnea 3. Deep venous thrombosis in right lower extremity three times, first time 20 years ago and two other time in the last five years. 4. Pulmonary embolism once about four years ago. 5. HIV diagnosed in 1983. 6. Avascular necrosis of bilateral femoral head 7. Sciatica 8. Hydrocele 9. Neuropathy. 10. Hepatitis B. PAST SURGICAL HISTORY 1. Multiple stents and angioplasty. 2. Renal stone. 3. Bilateral knee repair. 4. Craniotomy in 2012. 5. Cholecystectomy. 6. IVC filter placement 7. Hydrocele repair. FAMILY HISTORY No history of blood clot. He has a brother and sister, one son, one daughter, all healthy. SOCIAL HISTORY Never smoked, but he did have secondhand smoke exposure. He drinks occasionally. ALLERGIES HALDOL LORAZEPAM REGLAN MEDICATIONS Current, 1. Aspirin 2. Brilinta. 3. Pravachol. 4. Coreg 5. Odessey REVIEW OF SYSTEMS CONSTITUTIONAL: As above. EYES: Negative. ENT: Negative. CARDIOVASCULAR: As above. RESPIRATORY: As above. GI: He has had no occasional nausea due to medication. : Negative. MUSCULOSKELETAL: Has chronic pain HEMATOLOGIC: As above. ENDOCRINE: Negative. HEMATOLOGY: As above. PSYCHIATRIC: Negative. NEUROLOGIC: Negative. PHYSICAL EXAMINATION VITAL SIGNS: Temperature 98, blood pressure 189/109, O2 saturation 94% two liters nasal cannula. GENERAL: He is alert and oriented x3 in no acute distress. HEENT: Atraumatic, normocephalic. Pupils equal, round and reactive to light. Extraocular muscles intact. No scleral icterus. Oropharynx dry mucosa. No lesion. NECK: No thyromegaly. No palpable masses. LYMPHATICS: No palpable cervical, clavicular, axillary or inguinal lymph node CARDIOVASCULAR: Regular S1-S2, no murmur. LUNGS: Clear to auscultation anteriorly. ABDOMEN: Soft, nontender. EXTREMITIES: No cyanosis, clubbing. Right groin cath site dressing is dry. NEUROLOGIC: Exam nonfocal. LABORATORY DATA Reviewed ASSESSMENT 1. Erythrocytosis which appeared to be chronic. He presented with hemoglobin 19.1. In October 2016 his hemoglobin was 17.8. The patient stated that he has been told he has thick blood for several years. He has a history of multiple DVTs and pulmonary embolism. He has no family history of a hematologic disorder. He does have post bath pruritus. He has no history of tobacco use but had secondhand smoke exposure. Differential diagnosis includes polycythemia vera versus secondary erythrocytosis. We will proceed with further workup to look for primary polycythemia vera. He will need phlebotomy therapy and possible Hydrea if he indeed has polycythemia vera. 2. Coronary artery disease. He presented with angina. He had eight stents placed in the past. 3. History of multiple deep venous thromboses. He has had right lower extremity deep venous thrombosis three times, the first time was 20 years ago. He had two DVT within the last five years. He also had pulmonary embolism four years ago. He was on Coumadin until 2012 when he fell and had intracerebral hematoma. His Coumadin was stopped and he had an IVC filter placed. He has no evidence of recurrent clot at this time. Recommend DVT prophylaxis with heparin once cleared by cardiology. 4. HIV on anti-retroviral therapy. RECOMMENDATIONS 1. Proceed with workup to look for polycythemia vera. 2. Arrange for pulmonary function test with ABG. 3. Further management and recommendations will depend on the above test result. Thank you, Dr. Campbell, for asking me to see this patient. MD OUMAR Cespedes/ /6:12 PM /6:43 PM [facility]
[2017-05-02] MEDS ORDERED: SODIUM CHLORIDE 0.9% FLUSH 10 ML FLUSH IV FLUSH SCH (21:00)
[2017-05-02] MEDS ORDERED: CARVEDILOL 3.125 MG TAB PO SCH (21:00)
[2017-05-02] MEDS ORDERED: PRAVASTATIN SOD 10 MG TAB PO SCH (21:00)
--- NOTE | 2017-05-02 21:11 | EKG ---
Date Performed: 05/02/2017 Time Performed: 13:03:30 PTAGE: 61 years EKG: Sinus rhythm Possible inferior infarct - age undetermined Low QRS voltages in precordial leads Abnormal ECG Marciano red to prior tracing no significant change DOCTOR: Paula Banda Interpretating Date/Time 05/02/2017 21:09:59
[2017-05-02 22:40] LABS: AUTOMATED NEUTROPHIL # 4.1 TH/MM3 (1.8-7.7); BASOPHIL # 0.1 TH/MM3 (0-0.2); BASOPHIL % 0.9 % (0.0-2.0); EOSINOPHIL # 0.1 TH/MM3 (0-0.4); EOSINOPHIL % 1.6 % (0.0-4.0); HEMATOCRIT 51.2 % (39.0-51.0); HEMO FLAGS DIFF FINAL; LYMPH % 28.2 % (9.0-44.0); LYMPHOCYTE # 1.9 TH/MM3 (1.0-4.8); MEAN CELL VOLUME 100.6 FL (80.0-100.0); MEAN CORPUSCULAR HEMOGLOBIN 34.4 PG (27.0-34.0); MEAN CORPUSCULAR HGB CONC 34.2 % (32.0-36.0); MONO % 7.8 % (0.0-8.0); NEUT % 61.5 % (16.0-70.0); PLATELET COUNT 156 TH/MM3 (150-450); RED BLOOD COUNT 5.09 MIL/MM3 (4.50-5.90); WHITE BLOOD COUNT 6.7 TH/MM3 (4.0-11.0)
[2017-05-02 22:49] LABS: APTT (PATIENT) 25.4 SEC (24.3-30.1)
[2017-05-03] VITALS (8 sets, daily range): BP systolic 149–157; BP diastolic 92–96; PULSE 52–64; RESP 16–18; TEMP 97.6–98; O2SAT 95–96
[2017-05-03 00:18] LABS: FERRITIN 166 NG/ML (26-388); LDH SERUM 152 U/L (87-241); TRANSFERRIN IRON PROFILE 217 MG/DL (200-360)
[2017-05-03 00:20] LABS: CREATINE KINASE 70 U/L (39-308)
[2017-05-03] MEDS: MORPHINE SULFATE 2 MG/ML INJ IV PUSH PRN (01:18)
[2017-05-03 03:51] LABS: AUTOMATED NEUTROPHIL # 3.7 TH/MM3 (1.8-7.7); BASOPHIL # 0.1 TH/MM3 (0-0.2); BASOPHIL % 1.6 % (0.0-2.0); EOSINOPHIL # 0.2 TH/MM3 (0-0.4); EOSINOPHIL % 2.6 % (0.0-4.0); HEMATOCRIT 49.8 % (39.0-51.0); HEMO FLAGS DIFF FINAL; LYMPH % 29.7 % (9.0-44.0); LYMPHOCYTE # 1.9 TH/MM3 (1.0-4.8); MEAN CELL VOLUME 99.7 FL (80.0-100.0); MEAN CORPUSCULAR HEMOGLOBIN 35.3 PG (27.0-34.0); MEAN CORPUSCULAR HGB CONC 35.4 % (32.0-36.0); MONO % 9.2 % (0.0-8.0); NEUT % 56.9 % (16.0-70.0); PLATELET COUNT 148 TH/MM3 (150-450); RED CELL DISTRIBUTION WIDTH 12.8 % (11.6-17.2); WHITE BLOOD COUNT 6.5 TH/MM3 (4.0-11.0)
[2017-05-03 04:16] LABS: BICARBONATE 26.8 MEQ/L (21.0-32.0); POTASSIUM 3.6 MEQ/L (3.5-5.1)
[2017-05-03 04:19] LABS: HDL CHOLESTEROL 28.6 MG/DL (40.0-60.0)
--- NOTE | 2017-05-03 08:19 | PD.ONC.PN ---
Subjective Subjective Remarks Still has chest pain. No SOB. Objective Data Date Time Temp Pulse Resp B/P (MAP) Pulse Ox O2 Delivery O2 Flow Rate FiO2 05/03/17 07:00 97.6 64 18 157/96 (116) 95 05/03/17 06:00 58 05/03/17 05:00 52 05/03/17 04:00 54 05/03/17 03:00 56 05/03/17 03:00 98.0 56 16 149/92 (111) 96 05/03/17 02:00 53 05/03/17 01:00 53 05/03/17 00:00 55 05/02/17 23:00 98.1 53 16 133/88 (103) 94 05/02/17 23:00 53 05/02/17 22:00 56 05/02/17 21:00 70 05/02/17 20:00 98.6 78 16 127/85 (99) 95 05/02/17 20:00 66 05/02/17 19:00 72 05/02/17 18:00 74 05/02/17 17:27 16 05/02/17 17:00 64 05/02/17 16:15 64 05/02/17 14:00 60 05/02/17 13:00 98.0 74 16 189/109 (135) 94 05/02/17 13:00 68 05/02/17 12:30 66 05/03/17 05/03/17 05/03/17 07:00 15:00 23:00 Intake Total 480 ml Balance 480 ml Result Diagram: 05/03/17 0330 05/03/17 0330 Laboratory Results Laboratory Tests Test 05/02/17 14:05 05/02/17 17:05 05/02/17 21:34 05/03/17 03:30 Urine Opiates Screen POS Urine Barbiturates Screen NEG Urine Amphetamines Screen NEG Urine Benzodiazepines Screen NEG Urine Cocaine Screen NEG Urine Cannabinoids Screen NEG Iron Level 174 MCG/DL Total Iron Binding Capacity 304 MCG/DL Percent Iron Saturation 57.3 % Ferritin 166 NG/ML Lactate Dehydrogenase 152 U/L Total Creatine Kinase 70 U/L 66 U/L Troponin I 0.11 NG/ML 0.26 NG/ML White Blood Count 6.7 TH/MM3 6.5 TH/MM3 Red Blood Count 5.09 MIL/MM3 5.00 MIL/MM3 Hemoglobin 17.5 GM/DL 17.6 GM/DL Hematocrit 51.2 % 49.8 % Mean Corpuscular Volume 100.6 FL 99.7 FL Mean Corpuscular Hemoglobin 34.4 PG 35.3 PG Mean Corpuscular Hemoglobin Concent 34.2 % 35.4 % Red Cell Distribution Width 13.0 % 12.8 % Platelet Count 156 TH/MM3 148 TH/MM3 Mean Platelet Volume 8.3 FL 8.3 FL Neutrophils (%) (Auto) 61.5 % 56.9 % Lymphocytes (%) (Auto) 28.2 % 29.7 % Monocytes (%) (Auto) 7.8 % 9.2 % Eosinophils (%) (Auto) 1.6 % 2.6 % Basophils (%) (Auto) 0.9 % 1.6 % Neutrophils # (Auto) 4.1 TH/MM3 3.7 TH/MM3 Lymphocytes # (Auto) 1.9 TH/MM3 1.9 TH/MM3 Monocytes # (Auto) 0.5 TH/MM3 0.6 TH/MM3 Eosinophils # (Auto) 0.1 TH/MM3 0.2 TH/MM3 Basophils # (Auto) 0.1 TH/MM3 0.1 TH/MM3 CBC Comment DIFF FINAL DIFF FINAL Differential Comment Activated Partial Thromboplast Time 25.4 SEC Blood Urea Nitrogen 9 MG/DL Creatinine 0.86 MG/DL Random Glucose 101 MG/DL Calcium Level 8.3 MG/DL Sodium Level 138 MEQ/L Potassium Level 3.6 MEQ/L Chloride Level 102 MEQ/L Carbon Dioxide Level 26.8 MEQ/L Anion Gap 9 MEQ/L Estimat Glomerular Filtration Rate 90 ML/MIN Triglycerides Level 299 MG/DL Cholesterol Level 149 MG/DL LDL Cholesterol 61 MG/DL HDL Cholesterol 28.6 MG/DL Cholesterol/HDL Ratio 5.20 RATIO Administered Medications Medications (Trade) Dose Ordered Sig/Jeremy Route PRN Reason Start Time Stop Time Status Last Admin Dose Admin Sodium Chloride (NS Flush) 2 ml BID IV FLUSH 05/02/17 21:00 05/02/17 20:53 Morphine Sulfate (Morphine Inj) 2 mg Q3H PRN IV PUSH pain >5 05/02/17 14:00 05/03/17 01:18 Pravastatin Sodium (Pravachol) 10 mg HS PO 05/02/17 21:00 11/14/17 20:53 Carvedilol (Coreg) 3.125 mg Q12HR PO 05/02/17 21:00 05/02/17 20:53 Objective Remarks GENERAL: Well-nourished, well-developed patient. SKIN: Warm and dry. HEAD: Normocephalic. EYES: No scleral icterus. No injection or drainage. NECK: Supple, trachea midline. No JVD or lymphadenopathy. LYMPHATIC: No adenopathy. CARDIOVASCULAR: Regular rate and rhythm without murmurs. RESPIRATORY: Breath sounds equal bilaterally. No accessory muscle use. GASTROINTESTINAL: Abdomen soft, non-tender, nondistended. EXTREMITIES: No cyanosis, or edema. MUSCULOSKELETAL: Adequate muscle tone. NEUROLOGICAL: No obvious focal deficit. Awake, alert, and oriented x3. PSYCHIATRIC: Appropriate mood and affect; insight and judgment normal. Assessment/Plan Assessment 1. Erythrocytosis which appeared to be chronic. He presented with hemoglobin 19.1. In October 2016 his hemoglobin was 17.8. The patient stated that he has been told he has thick blood for several years. He has a history of multiple DVTs and pulmonary embolism. He has no family history of a hematologic disorder. He does have post bath pruritus. He has no history of tobacco use but had secondhand smoke exposure. Differential diagnosis includes polycythemia vera versus secondary erythrocytosis. 05/03 Hgb down to 17.6 with hydration. 2. Coronary artery disease. He presented with angina. He had eight stents placed in the past. 3. History of multiple deep venous thromboses. He has had right lower extremity deep venous thrombosis three times, the first time was 20 years ago. He had two DVT within the last five years. He also had pulmonary embolism four years ago. He was on Coumadin until 2012 when he fell and had intracerebral hematoma. His Coumadin was stopped and he had an IVC filter placed. He has no evidence of recurrent clot at this time. 4. HIV on anti-retroviral therapy. Plan Plan: 1. EPO, Dandre 2 pending. 2. Await pulmonary function test with ABG. 3. Further management and recommendations will depend on the above test result. 4. Restart heparin for DVT prophy b/c he has high risk for DVT. Lázaro Stein MD May 03, 2017 08:19
[2017-05-03] MEDS ORDERED: IOHEXOL 350 MG/ML 50 ML BTL (for Cath Lab) OTHER ONE (08:29)
[2017-05-03] MEDS ORDERED: IOHEXOL 350 MG/ML 100 ML BTL (for Cath Lab) OTHER ONE (08:29)
[2017-05-03] MEDS ORDERED: ASPIRIN 81 MG CHEW TAB CHEW SCH (09:00)
[2017-05-03] MEDS ORDERED: RILPIVIRINE PO SCH (09:00)
[2017-05-03] MEDS ORDERED: TENOFOVIR ALAFENAMIDE PO SCH (09:00)
[2017-05-03] MEDS ORDERED: EMTRICITABINE PO SCH (09:00)
[2017-05-03] MEDS ORDERED: TICAGRELOR 90 MG TAB PO SCH (09:00)
[2017-05-03] MEDS ORDERED: HEPARIN SODIUM - SQ 10,000 UNITS/ML VIAL SQ SCH (14:00)
--- NOTE | 2017-05-03 18:55 | EKG ---
Date Performed: 05/02/2017 Time Performed: 21:01:36 PTAGE: 61 years EKG: Sinus rhythm with PAC(s) Leftward axis rSr'(V1) - probable normal variant Low QRS voltages in precordial leads Sohan rderline ECG PREVIOUS TRACING : 05/02/2017 13.03 Compared to prior tracing no significant change DOCTOR: Paula Banda Interpretating Date/Time 05/03/2017 18:55:04
== END 2017-05-03 09:09 | disposition left against medical advice (07) | DRG 247 ==
LOC: NEDDLT 12:24 → HCIS 12:41 → OBSVTOIN 13:06
PROVIDERS: ADMIT Hospitalist; ATTEND Hospitalist
PROC: 4A023N7 Measurement of Cardiac Sampling and Pressure, Left Heart, Percutaneous Approach (ICD-10-PCS; 2017-05-02)
PROC: B2111ZZ Fluoroscopy of Multiple Coronary Arteries using Low Osmolar Contrast (ICD-10-PCS; 2017-05-02)
PROC: B2151ZZ Fluoroscopy of Left Heart using Low Osmolar Contrast (ICD-10-PCS; 2017-05-02)
PROC: 027034Z Dilation of Coronary Artery, One Artery with Drug-eluting Intraluminal Device, Percutaneous Approach (ICD-10-PCS; principal; 2017-05-02 14:30)
DX: I25.110 Atherosclerotic heart disease of native coronary artery with unstable angina pectoris (principal); D75.1 Secondary polycythemia; G62.9 Polyneuropathy, unspecified; G47.33 Obstructive sleep apnea (adult) (pediatric); L29.9 Pruritus, unspecified; Z21 Asymptomatic human immunodeficiency virus [HIV] infection status; Z77.22 Contact with and (suspected) exposure to environmental tobacco smoke (acute) (chronic); Z82.49 Family history of ischemic heart disease and other diseases of the circulatory system; Z86.19 Personal history of other infectious and parasitic diseases; Z86.711 Personal history of pulmonary embolism; Z86.718 Personal history of other venous thrombosis and embolism; Z95.5 Presence of coronary angioplasty implant and graft
CPT/HCPCS: 71010; 80048; 80061; 80307; 81270; 82550; 82668; 82728; 83540; 83550; 83615; 83735; 84484; 85002; 85025; 85610; 85730; 92928; 93005; 93458; 99152; 99153; 99285; C1725; C1769; C1874; C1887; C1893; J1644; J2250; J2270; J3010; J7030; Q9967

== ENCOUNTER 2017-06-13 11:04 | Observation (INO) | payer MEDICARE, OTHER ==
[~2017-06-13] VITALS: Ht 175.3 cm; Wt 93.8 kg
[~2017-06-13 11:04] MED LIST changes: +ASPI-516 CHEW; +BRIL90TA PO; -HYDR-3288 PO; -LOPE-1 PO; -TYLE325T PO; -ZANA2CAP PO
[2017-06-13 12:53] VITALS: BP 166/91; PULSE 78; RESP 18; TEMP 96.8; O2SAT 94
[2017-06-13] MEDS ORDERED: SODIUM CHLORIDE 0.9% FLUSH 10 ML FLUSH IV FLUSH PRN (13:30)
--- NOTE | 2017-06-13 14:06 | HHI.HP ---
HPI Service Family Medicine Primary Care Physician No Primary Care Physician Admission Diagnosis chest pain Diagnoses: Chief Complaint: chest pain International Travel<30 Days: No Contact w/Intl Traveler<30days: No Known Affected Area: No History of Present Illness Patient is a 62-year-old male with history of HIV, coronary artery disease, multiple stents, DVTs, TIAs who presents today for chest pain. He states he woke up today at around 0730 and felt "weird" and started having chest pain. Had nausea, vomited several times, denies any blood in the vomit. He states his measured blood pressure at home was 180/130. Took nitroglycerin at home, which didn't help. Also took aspirin at home. He felt like there was an elephant on his chest. States the pain was stabbing. Located right in the middle of chest. Some radiating down his left arm. States it is 9/10. He has had some shortness of breath this morning, that has improved. Eyes any angina from his last hospitalization until now. Was hospitalized in April at [place] and cardiac catheter procedure done. That time, showed 80% stenosis of the left circumflex artery. Has significant heart history, with reported 10 cardiac stents, the most recent in April 2017. As his history of multiple DVTs, and has had IVC filter placed. Denies any smoking. 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 Garcia in [place], and Dr. Vega in [place]. Review of Systems Constitutional: DENIES: Fever, Chills, Dizziness Eyes: DENIES: Eye pain, Vision loss Ears, nose, mouth, throat: DENIES: Hearing loss, Throat pain, Ear Pain Respiratory: DENIES: Cough, Shortness of breath Cardiovascular: COMPLAINS OF: Chest pain, Palpitations, DENIES: Syncope, Lower Extremity Edema Gastrointestinal: COMPLAINS OF: Diarrhea, Nausea, Vomiting, DENIES: Abdominal pain, Black stools, Bloody stools, Constipation Genitourinary: COMPLAINS OF: Urinary frequency, DENIES: Dysuria Musculoskeletal: COMPLAINS OF: Back pain, Neck pain Integumentary: DENIES: Abnormal pigmentation, Rash Neurologic: COMPLAINS OF: Headache, DENIES: Localized weakness, Paresthesias, Seizures Psychiatric: COMPLAINS OF: Anxiety, DENIES: Confusion, Mood changes Past Family Social History Past Medical History HIV CAD-9 cardiac stents non-occlusive thrombosis femoral vein (2014) 2 DVTs, PE x1 2 TIAs AVN bilateral femoral heads sciatica sleep apnea neuropathy Past Surgical History balloon angioplasty 2014 kidney stone-ureteroscopy 2013 b/l hernia repair cardiac stents Subdural hematoma,craniotomy 2012 Cholecystectomy 2011 hydrocele repair tarsal tunnel IVC filter 2013 Reported Medications Reported Meds & Active Scripts Active Reported Brilinta (Ticagrelor) 90 Mg Tab 90 Mg PO BID Aspirin 81 Mg Chew 81 Mg CHEW DAILY Odefsey (Ocuagiucdmovm-Cmzewaflewa-Xpxfstsok Alafenam) 200-200-25 Mg Tab 1 Tab PO DAILY Allergies: Coded Allergies: haloperidol (Unverified Allergy, Severe, Twitching, 06/13/17) lorazepam (Unverified Allergy, Severe, Confusion, 06/13/17) metoclopramide (Unverified Allergy, Severe, Nausea/Vomiting, 06/13/17) Active Ordered Medications Active Medications Sodium Chloride (NS Flush) 2 ml BID IV FLUSH; Start 06/13/17 at 21:00 Sodium Chloride (NS Flush) 2 ml UNSCH PRN IV FLUSH; Start 06/13/17 at 13:30 Family History Father-prostate cancer, heart disease; grandfather-prostate cancer Mother-heart disease Social History 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 SKIN: No rashes, ecchymoses or lesions. Cool and dry. HEAD: Atraumatic. Normocephalic. No temporal or scalp tenderness. EYES: Pupils equal round and reactive. Extraocular motions intact. No scleral icterus. No injection or drainage. ENT: Nose without bleeding, purulent drainage or septal hematoma. Throat without erythema, tonsillar hypertrophy or exudate. Uvula midline. Airway patent. NECK: Trachea midline. No JVD or lymphadenopathy. Supple, nontender, no meningeal signs. CARDIOVASCULAR: Regular rate and rhythm without murmurs, gallops, or rubs. RESPIRATORY: Clear to auscultation. Breath sounds equal bilaterally. No wheezes , rales, or rhonchi. GASTROINTESTINAL: Abdomen soft, non-tender, nondistended. No hepato-splenomegaly , or palpable masses. No guarding. MUSCULOSKELETAL: Extremities without clubbing, cyanosis, or edema. No joint tenderness, effusion, or edema noted. No calf tenderness. Negative Homans sign bilaterally. NEUROLOGICAL: Awake and alert. Cranial nerves II through XII intact. Motor and sensory grossly within normal limits. Five out of 5 muscle strength in all muscle groups. Normal speech. Caprini VTE Risk Assessment Caprini VTE Risk Assessment: Mod/High Risk (score >= 2) Caprini Risk Assessment Model Point Value = 1 Point Value = 2 Point Value = 3 Point Value = 5 Age 41-60 Minor surgery BMI > 25 kg/m2 Swollen legs Varicose veins or History of unexplained or recurrent spontaneous Oral contraceptives or hormone replacement Sepsis (< 1 month) Serious lung disease, including pneumonia (< 1 month) Abnormal pulmonary function Acute myocardial infarction Congestive heart failure (< 1 month) History of inflammatory bowel disease Medical patient at bed rest Age 61-74 Arthroscopic surgery Major open surgery (> 45 min) Laparoscopic surgery (> 45 min) Malignancy Confined to bed (> 72 hours) Immobilizing plaster cast Central venous access Age >= 75 History of VTE Family history of VTE Factor V Leiden Prothrombin [id number] Lupus anticoagulant Anticardiolipin antibodies Elevated serum homocysteine Heparin-induced thrombocytopenia Other congenital or acquired thrombophilia Stroke (< 1 month) Elective arthroplasty Hip, pelvis, or leg fracture Acute spinal cord injury (< 1 month) Prophylaxis Regimen Total Risk Factor Score Risk Level Prophylaxis Regimen 0-1 Low Early ambulation 2 Moderate Order ONE of the following: *Sequential Compression Device (SCD) *Heparin 5000 units SQ BID 3-4 Higher Order ONE of the following medications: *Heparin 5000 units SQ TID *Enoxaparin/Lovenox 40 mg SQ daily (WT < 150 kg, CrCl > 30 mL/min) *Enoxaparin/Lovenox 30 mg SQ daily (WT < 150 kg, CrCl > 10-29 mL/min) *Enoxaparin/Lovenox 30 mg SQ BID (WT < 150 kg, CrCl > 30 mL/min) AND/OR *Sequential Compression Device (SCD) 5 or more Highest Order ONE of the following medications: *Heparin 5000 units SQ TID (Preferred with Epidurals) *Enoxaparin/Lovenox 40 mg SQ daily (WT < 150 kg, CrCl > 30 mL/min) *Enoxaparin/Lovenox 30 mg SQ daily (WT < 150 kg, CrCl > 10-29 mL/min) *Enoxaparin/Lovenox 30 mg SQ BID (WT < 150 kg, CrCl > 30 mL/min) AND *Sequential Compression Device (SCD) Assessment and Plan Assessment and Plan 62-year-old male with history of coronary artery disease, HIV presents with chest pain. We'll admit for ACS rule out workup. Code Status Full Discussed Condition With Dr. Armendariz Problem List: (1) Chest pain ICD Codes: R07.9 - Chest pain, unspecified Plan: Long history of CAD with multiple stent placements. Pt. states CP initially resolved with nitro and morphine. Cath on 05/02/17 showed EF 45%. EKG showed normal sinus rhythm. No ST changes CXR showed no acute disease -Initial Trop <0.02. Trend Donato and EKGs x 2. -UDS pending -Supplemental O2. Daily aspirin. -Morphine 2mg Q2 hrs PRN chest pain only. -Metoprolol 12.5 PO BID jane (hold for low BP and HR). -Nitroglycerin PRN chest pain -Telemetry -Consult cardiology. NPO for now in case of PCI. -AM BMP + Mg (2) HIV (human immunodeficiency virus infection) ICD Codes: B20 - Human immunodeficiency virus [HIV] disease Status: Chronic Plan: Chronic history of HIV. Unaware of last CD4 counts. -Continue home retrovirals Iva (3) Polycythemia ICD Codes: D75.1 - Secondary polycythemia Status: Chronic Plan: Hemoglobin 18.5 on admission. 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 Chronically elevated. On last admission, hematology was consulted, who is working him up for polycythemia vera vs secondary erythrocytosis. JAK2 mutation negative at last hospitalization. EPO 21.6 -Follow CBCs -Heparin ppx (4) FEN Status: Acute Plan: Fluids: tolerating PO Electrolytes: wnl, continue to monitor Nutrition: NPO DVT ppx: heparin Problem Qualifiers (1) Chest pain: Qualified Codes: R07.89 - Other chest pain Deny Garces MD, R2 Jun 13, 2017 14:06
[2017-06-13 14:43] VITALS: O2SAT 93
[2017-06-13] MEDS ORDERED: ACETAMINOPHEN 325 MG TAB PO PRN (14:45)
[2017-06-13] MEDS ORDERED: NITROGLYCERIN 2% OINT 1 GM PACKET TOP PRN (14:45)
[2017-06-13 15:04] VITALS: BP 131/78; PULSE 82; RESP 18; TEMP 98; O2SAT 92
[2017-06-13 15:05] VITALS: PULSE 80
[2017-06-13] MEDS: MORPHINE SULFATE 2 MG/ML INJ IV PUSH PRN ×3 (15:49→21:41)
[2017-06-13 20:01] VITALS: PULSE 74
--- NOTE | 2017-06-13 20:44 | MB ---
cc: MELONIE SERVIN MD DATE OF CONSULTATION 06/13/17 HISTORY OF PRESENT ILLNESS A 62-year-old white male with history of HIV, coronary artery disease and 10 stents, last in April of this year. He presented with sudden left sided chest discomfort radiating down to the abdomen. He had nausea and vomiting. There was no change with nitroglycerin. The patient's blood pressure was elevated. There was some radiation into the left arm. He has a history of multiple DVTs and also has IVC filter. PAST MEDICAL HISTORY 1. Coronary artery disease, ten stents. 2. HIV 3. Femoral vein thrombosis in 2014 4. Deep venous thrombosis and PE 5. Two transient ischemic attacks. 6. AVM 8. Sleep apnea 9. Neuropathy. 10. Nephrolithiasis 11. Hernia repair 12. Subdural hematoma 13. Craniectomy 2012, 14. Cholecystectomy 15. Hydrocele repair 2009. 16. IVC filter in 2012. MEDICATIONS 1. Brilinta 2. Aspirin 3. Odessey ALLERGIES ALLOPURINOL LORAZEPAM METOCLOPRAMIDE SOCIAL HISTORY The patient does not smoke. He drinks alcohol. He drinks beer socially, accompanied by his . FAMILY HISTORY Positive for heart disease in both parents REVIEW OF SYSTEMS Otherwise negative. PHYSICAL EXAMINATION VITAL SIGNS: Blood pressure 131/78, pulse 82 and regular. HEENT: Negative. No bruits. LUNGS: Clear. HEART: Regular with no murmur, gallop or rub. CHEST: Soft. There was left-sided chest discomfort reproducible with chest palpation. ABDOMEN: Soft. No bruits. EXTREMITIES: Without edema. 1-2+ distal pulses. NEUROLOGIC: Grossly nonfocal. CARDIOLOGY STUDIES EKG was reviewed and showed normal sinus rhythm with normal axis and intervals, PACs, no acute changes. LABORATORY DATA Troponin negative and troponin less than 0.02. DIAGNOSES 1. Atypical chest pain 2. Coronary artery disease, history of coronary stenting. 3. HIV positive. 4. Polycythemia 5. History of DVT and PE 6. History of TIA 7. Hypertension. OPERATION Mr. Branch will be monitored on telemetry. I recommend to obtain serial enzymes and EKGs. His first troponin is negative and his EKG has no acute changes. His pain is rather atypical. We will adjust his medical therapy. I will follow him for cardiology during his hospitalization. He will follow up with his cardiologists in [place] after discharge. MD MONICA Macias /6:50 PM /8:16 PM URMILA
[2017-06-13] MEDS: RANOLAZINE 500 MG EXTENDED RELEASE TAB PO SCH (21:00)
[2017-06-13] MEDS ORDERED: METOPROLOL TARTRATE 25 MG TAB PO SCH (21:00)
[2017-06-13] MEDS: TICAGRELOR 90 MG TAB PO SCH (21:00)
[2017-06-13 21:13] VITALS: BP 155/85; PULSE 67; RESP 18; TEMP 98.7; O2SAT 96
[2017-06-13] MEDS: METOPROLOL TARTRATE 25 MG TAB PO SCH (21:38)
[2017-06-13] MEDS: SODIUM CHLORIDE 0.9% FLUSH 10 ML FLUSH IV FLUSH SCH (21:38)
[2017-06-13] MEDS: ATORVASTATIN 10 MG TAB PO SCH (21:39)
[2017-06-13] MEDS: HEPARIN SODIUM - SQ 10,000 UNITS/ML VIAL SQ SCH (21:39)
[2017-06-14] VITALS (12 sets, daily range): BP systolic 100–147; BP diastolic 62–84; PULSE 50–79; RESP 18–20; TEMP 98–98.3; O2SAT 92–97
[2017-06-14] MEDS: MORPHINE SULFATE 2 MG/ML INJ IV PUSH PRN ×4 (01:53→21:05)
[2017-06-14] MEDS: ONDANSETRON HCL 4 MG/2 ML VIAL IV PUSH PRN ×3 (06:17→21:04)
[2017-06-14] MEDS: ISOSORBIDE MONONITRATE 30 MG TAB PO SCH (06:17)
[2017-06-14] MEDS: RANOLAZINE 500 MG EXTENDED RELEASE TAB PO SCH ×2 (08:45→21:00)
[2017-06-14] MEDS: HEPARIN SODIUM - SQ 10,000 UNITS/ML VIAL SQ SCH ×2 (08:45→21:02)
[2017-06-14] MEDS: TICAGRELOR 90 MG TAB PO SCH (08:45)
[2017-06-14] MEDS: SODIUM CHLORIDE 0.9% FLUSH 10 ML FLUSH IV FLUSH SCH ×2 (08:46→21:05)
[2017-06-14] MEDS: METOPROLOL TARTRATE 25 MG TAB PO SCH ×2 (08:46→21:00)
[2017-06-14] MEDS: ASPIRIN 81 MG CHEW TAB CHEW SCH (08:47)
[2017-06-14] MEDS ORDERED: RILPIVIRINE PO SCH (09:00)
[2017-06-14] MEDS ORDERED: EMTRICITABINE PO SCH (09:00)
[2017-06-14] MEDS ORDERED: TENOFOVIR ALAFENAMIDE PO SCH (09:00)
[2017-06-14 11:24] LABS: AUTOMATED NEUTROPHIL # 4.9 TH/MM3 (1.8-7.7); BASOPHIL # 0.1 TH/MM3 (0-0.2); BASOPHIL % 0.9 % (0.0-2.0); EOSINOPHIL # 0.2 TH/MM3 (0-0.4); EOSINOPHIL % 2.3 % (0.0-4.0); HEMATOCRIT 48.5 % (39.0-51.0); HEMOGLOBIN 16.7 GM/DL (13.0-17.0); LYMPH % 30.1 % (9.0-44.0); LYMPHOCYTE # 2.5 TH/MM3 (1.0-4.8); MEAN CELL VOLUME 99.8 FL (80.0-100.0); MEAN CORPUSCULAR HEMOGLOBIN 34.3 PG (27.0-34.0); MEAN CORPUSCULAR HGB CONC 34.4 % (32.0-36.0); MEAN PLATELET VOLUME 8.6 FL (7.0-11.0); MONO % 6.8 % (0.0-8.0); MONOCYTE # 0.6 TH/MM3 (0-0.9); NEUT % 59.9 % (16.0-70.0); PLATELET COUNT 179 TH/MM3 (150-450); RED BLOOD COUNT 4.86 MIL/MM3 (4.50-5.90); RED CELL DISTRIBUTION WIDTH 12.8 % (11.6-17.2); WHITE BLOOD COUNT 8.2 TH/MM3 (4.0-11.0)
[2017-06-14 11:43] LABS: BICARBONATE 26.9 MEQ/L (21.0-32.0); CALCIUM 8.4 MG/DL (8.5-10.1); CREATININE 0.87 MG/DL (0.60-1.30); MAGNESIUM 2.2 MG/DL (1.5-2.5)
[2017-06-14 11:45] LABS: PHOSPHORUS 3.1 MG/DL (2.5-4.9)
[2017-06-14 11:47] LABS: CHOLESTEROL/ HDL RATIO 5.88 RATIO; HDL CHOLESTEROL 30.4 MG/DL (40.0-60.0)
--- NOTE | 2017-06-14 12:38 | PD.CARD.PN ---
Subjective Subjective Remarks Sharp atypical left sided CP improving, no SOB Objective Medications Current Medications Medications (Trade) Dose Ordered Sig/Jeremy Route Start Time Stop Time Status Last Admin (NS Flush) 2 ml UNSCH PRN IV FLUSH 06/13/17 13:30 (NS Flush) 2 ml BID IV FLUSH 06/13/17 21:00 06/14/17 08:46 (Nitroglycerin 2% Oint) 0.5 inch Q6HR PRN TOP 06/13/17 14:45 06/13/17 17:19 (Morphine Inj) 2 mg Q30M PRN IV PUSH 06/13/17 14:45 06/14/17 01:53 (Lipitor) 40 mg HS PO 06/13/17 21:00 06/13/17 21:39 (Tylenol) 650 mg Q6H PRN PO 06/13/17 14:45 (Zofran Inj) 4 mg Q6H PRN IV PUSH 06/13/17 14:45 06/14/17 06:17 (Aspirin Chew) 81 mg DAILY CHEW 06/14/17 09:00 06/14/17 08:47 (Brilinta) 90 mg BID PO 06/13/17 21:00 Patient Own Medication Bqaeycvpdjqrf-Vfearvamlea-Jltpmdv... DAILY PO 06/14/17 09:00 (Heparin Inj) 5,000 units Q12HR SQ 06/13/17 21:00 06/13/17 21:39 (Lopressor) 25 mg BID PO 06/13/17 21:00 06/13/17 21:38 (Imdur) 30 mg DAILY@07 PO 06/14/17 07:00 06/14/17 06:17 (Ranexa) 500 mg Q12HR PO 06/13/17 21:00 Vital Signs / I&O Vital Signs Date Time Temp Pulse Resp B/P (MAP) Pulse Ox O2 Delivery O2 Flow Rate FiO2 06/14/17 12:07 98.3 50 18 105/62 (76) 94 06/14/17 09:11 53 06/14/17 07:32 98.1 52 20 100/62 (75) 93 06/14/17 05:06 98.1 79 18 147/84 (105) 97 06/14/17 03:25 50 06/14/17 02:39 18 06/14/17 00:41 98.0 66 18 133/74 (93) 92 06/14/17 00:03 70 06/13/17 21:13 98.7 67 18 155/85 (108) 96 06/13/17 20:01 74 06/13/17 15:05 80 06/13/17 15:04 98.0 82 18 131/78 (95) 92 06/13/17 14:43 93 21 06/13/17 12:53 96.8 78 18 166/91 (116) 94 Physical Exam GENERAL: In NAD SKIN: Warm and dry. HEAD: Normocephalic. EYES: No scleral icterus. No injection or drainage. NECK: Supple, trachea midline. No JVD or lymphadenopathy. CARDIOVASCULAR: Regular rate and rhythm without murmurs, gallops, or rubs. RESPIRATORY: Breath sounds equal bilaterally. No accessory muscle use. GASTROINTESTINAL: Abdomen soft, non-tender, nondistended. MUSCULOSKELETAL: No cyanosis, or edema. Laboratory Laboratory Tests Test 06/13/17 16:16 06/13/17 19:32 06/14/17 00:18 06/14/17 10:45 Troponin I LESS THAN 0.02 NG/ML LESS THAN 0.02 NG/ML Urine Opiates Screen POS Urine Barbiturates Screen NEG Urine Amphetamines Screen NEG Urine Benzodiazepines Screen NEG Urine Cocaine Screen NEG Urine Cannabinoids Screen NEG White Blood Count 8.2 TH/MM3 Red Blood Count 4.86 MIL/MM3 Hemoglobin 16.7 GM/DL Hematocrit 48.5 % Mean Corpuscular Volume 99.8 FL Mean Corpuscular Hemoglobin 34.3 PG Mean Corpuscular Hemoglobin Concent 34.4 % Red Cell Distribution Width 12.8 % Platelet Count 179 TH/MM3 Mean Platelet Volume 8.6 FL Neutrophils (%) (Auto) 59.9 % Lymphocytes (%) (Auto) 30.1 % Monocytes (%) (Auto) 6.8 % Eosinophils (%) (Auto) 2.3 % Basophils (%) (Auto) 0.9 % Neutrophils # (Auto) 4.9 TH/MM3 Lymphocytes # (Auto) 2.5 TH/MM3 Monocytes # (Auto) 0.6 TH/MM3 Eosinophils # (Auto) 0.2 TH/MM3 Basophils # (Auto) 0.1 TH/MM3 CBC Comment DIFF FINAL Differential Comment Blood Urea Nitrogen 10 MG/DL Creatinine 0.87 MG/DL Random Glucose 103 MG/DL Calcium Level 8.4 MG/DL Phosphorus Level 3.1 MG/DL Magnesium Level 2.2 MG/DL Sodium Level 136 MEQ/L Potassium Level 4.2 MEQ/L Chloride Level 103 MEQ/L Carbon Dioxide Level 26.9 MEQ/L Anion Gap 6 MEQ/L Estimat Glomerular Filtration Rate 89 ML/MIN Triglycerides Level 265 MG/DL Cholesterol Level 179 MG/DL LDL Cholesterol 96 MG/DL HDL Cholesterol 30.4 MG/DL Cholesterol/HDL Ratio 5.88 RATIO Assessment and Plan Problem List: (1) CAD (coronary artery disease) ICD Codes: I25.10 - Atherosclerotic heart disease of [place] coronary artery without angina pectoris (2) Chest pain ICD Codes: R07.9 - Chest pain, unspecified Status: Acute (3) HIV (human immunodeficiency virus infection) ICD Codes: B20 - Human immunodeficiency virus [HIV] disease Status: Chronic Assessment and Plan Atypical CP. EKG and cardiac enzymes unremarkable. No evidence of ACS. GI eval in progress. Continue tx for CAD. Increase activity. F/u with primary cardiologists in [place]. Paula Banda MD Jun 14, 2017 12:38
--- NOTE | 2017-06-14 13:12 | HHI.FPPN ---
Subjective Remarks Mr. Branch was afebrile with stable VS overnight; patient with HR in 50's this morning and O2 saturations 92-97%. Patient reports continued chest pain, 6-7/10 in severity. Patient reports associated numbness/tingling on L side of his chest. Patient reports fatigue when ambulating out of bed this morning. Patient also reports prolonged history of nausea which is worse in the mornings. (Carlos Henderson MD, R3) Objective Vitals Vital Signs Date Time Temp Pulse Resp B/P (MAP) Pulse Ox O2 Delivery O2 Flow Rate FiO2 06/14/17 12:07 98.3 50 18 105/62 (76) 94 06/14/17 09:11 53 06/14/17 07:32 98.1 52 20 100/62 (75) 93 06/14/17 05:06 98.1 79 18 147/84 (105) 97 06/14/17 03:25 50 06/14/17 02:39 18 06/14/17 00:41 98.0 66 18 133/74 (93) 92 06/14/17 00:03 70 06/13/17 21:13 98.7 67 18 155/85 (108) 96 06/13/17 20:01 74 06/13/17 15:05 80 06/13/17 15:04 98.0 82 18 131/78 (95) 92 06/13/17 14:43 93 21 (Carlos Henderson MD, R3) Result Diagram: 06/14/17 1045 06/14/17 1045 Imaging CXR 06/13/2017- no acute disease Objective Remarks GENERAL: This is a well-nourished, well-developed patient, in no apparent distress. SKIN: No rashes, ecchymoses or lesions. Cool and dry. EYES: Extraocular motions grossly intact. CARDIOVASCULAR: Regular rate and rhythm without murmurs RESPIRATORY: Clear to auscultation. Breath sounds equal bilaterally. No wheezes to auscultation GASTROINTESTINAL: Abdomen soft, non-tender, nondistended. No guarding. MUSCULOSKELETAL: Extremities without edema. Grossly normal ROM NEUROLOGICAL: Awake and alert. Cranial nerves grossly intact. Motor and sensory grossly within normal limits (Carlos Henderson MD, R3) A/P Assessment and Plan 62-year-old male with history of coronary artery disease, HIV presented with chest pain: (Carlos Henderson MD, R3) Attending Attestation THIS CASE WAS DISCUSSED WITH THE RESIDENT PHYSICIANS. I HAVE REVIEWED THE RECORD , PATIENT SEEN AND EXAMINED, AND AGREE WITH THE ABOVE NOTE AND PLAN OF CARE WAS DISCUSSED. I HAVE AUTHORIZED THE ORDER FOR ADMISSION TO AN IN-PATIENT STATUS. (Joe Nolen MD) Problem List: (1) Chest pain ICD Codes: R07.9 - Chest pain, unspecified Plan: -ACS rule out -EKG's reassuring -Troponins x2 <0.02 -Continue telemetry -PRN Nitroglycerin -Cardiology consulted -Atypical chest pain. No evidence of ACS.GI work-up -Conitnue CAD treatment -Increase activity -f/u with [facility] -Will consult GI for further evaluation -Will consider empiric PPI Impression: Long history of CAD with multiple stent placements. Pt. states CP initially resolved with nitro and morphine. Cath on 05/02/17 showed EF 45%. EKG showed normal sinus rhythm. No ST changes CXR showed no acute disease Labs on admission: CBC unremarkable CMP unremarkable UDS + opiates, otherwise negative (2) CAD (coronary artery disease) ICD Codes: I25.10 - Atherosclerotic heart disease of [place] coronary artery without angina pectoris Status: Chronic Plan: Impression: Patient with H CAD s/p 10 stents per patient -Continue Metoprolol 25mg BID -Continue Brilinta 90mg BID -Continue ASA 81mg daily -Continue Imdur 30mg daily -Continue Atorvastatin 40mg HS -Continue Ranexa -PRN nitroglycerin -Discuss with patient regarding whether NIRANJAN previously utilized (3) HIV (human immunodeficiency virus infection) ICD Codes: B20 - Human immunodeficiency virus [HIV] disease Status: Chronic Plan: Chronic history of HIV. Unaware of last CD4 counts. -Continue home retrovirals- Odefsey -Will discuss history further to evaluate whether repeat CD4 /viral load testing needed (4) Polycythemia ICD Codes: D75.1 - Secondary polycythemia Status: Chronic Plan: Impression: Hemoglobin 18.5 on admission; HCT 52.4. 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 Chronically elevated. On last admission, hematology was consulted, who is working him up for polycythemia vera vs secondary erythrocytosis. JAK2 mutation negative at last hospitalization. EPO 21.6 -Follow CBCs -Heparin ppx q8hrs (5) FEN Status: Acute Plan: Fluids: tolerating PO Electrolytes: wnl, continue to monitor Nutrition: Will give clear liquid diet until GI evaluation; can advance if patient desires DVT ppx: heparin q8hrs (Carlos Henderson MD, R3) Problem Qualifiers (1) Chest pain: Qualified Codes: R07.89 - Other chest pain Carlos Henderson MD, R3 Jun 14, 2017 13:12 Joe Nolen MD Jun 16, 2017 13:34
--- NOTE | 2017-06-14 14:04 | PD.CONS ---
HPI History of Present Illness This is a 62 year old male who presented to the emergency room on 06/13/17 with midsternal chest pain which she related to as a weird sensation. Patient also notes that he has had increased bouts of nausea especially early in the morning when he first arouses and tries to drink water. He states there are times he has nausea and vomiting in the food appears to be still sitting in his stomach after 12 hours. Patient also has bouts of constipation alternating with diarrhea, and states that this is been his norm for several years. Patient has a significant history of coronary artery disease requiring multiple stents and procedures, he also has HIV; states the HIV medicines to also make him nauseated. 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 States he thinks he had endoscopy and colonoscopy approximately 5 years ago but does not remember any results. Patient denies any dysphasia, no recent weight gain or weight loss. Patient does note some mild shortness of breath at times, and does note some occasional heartburn. (Tiffany Zuniga) PFSH Past Medical History HIV coronary artery disease TIAs DVT, PE 1 Sciatica Sleep apnea Neuropathy AVN bilateral femoral heads Some of his history is gathered from the record Past Surgical History Angioplasty 2014 stones ureteroscopically 2013 Cardiac stents Cholecystectomy rectocele repair Carpal tunnel IVC filter 2013 Bilateral hernia repair Diarrhea Constipation (Tiffany Zuniga) Coded Allergies: haloperidol (Unverified Allergy, Severe, Twitching, 06/13/17) lorazepam (Unverified Allergy, Severe, Confusion, 06/13/17) metoclopramide (Unverified Allergy, Severe, Nausea/Vomiting, 06/13/17) Medications Administered Medications Medications (Trade) Dose Ordered Sig/Jeremy Route PRN Reason Start Time Stop Time Status Last Admin Dose Admin Sodium Chloride (NS Flush) 2 ml BID IV FLUSH 06/13/17 21:00 06/14/17 08:46 Nitroglycerin (Nitroglycerin 2% Oint) 0.5 inch Q6HR PRN TOP CHEST PAIN 06/13/17 14:45 06/13/17 17:19 Morphine Sulfate (Morphine Inj) 2 mg Q30M PRN IV PUSH CHEST PAIN 06/13/17 14:45 06/14/17 13:00 Atorvastatin Calcium (Lipitor) 40 mg HS PO 06/13/17 21:00 06/13/17 21:39 Ondansetron HCl (Zofran Inj) 4 mg Q6H PRN IV PUSH NAUSEA OR VOMITING 06/13/17 14:45 06/14/17 13:00 Aspirin (Aspirin Chew) 81 mg DAILY CHEW 06/14/17 09:00 06/14/17 08:47 Heparin Sodium (Porcine) (Heparin Inj) 5,000 units Q12HR SQ 06/13/17 21:00 06/13/17 21:39 Metoprolol Tartrate (Lopressor) 25 mg BID PO 06/13/17 21:00 06/13/17 21:38 Isosorbide Mononitrate (Imdur) 30 mg DAILY@07 PO 06/14/17 07:00 06/14/17 06:17 Social History Patient has partner 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, 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 Nonsmoker (Tiffany Zuniga) Review of Systems Constitutional: COMPLAINS OF: Fatigue Gastrointestinal: COMPLAINS OF: Constipation, Diarrhea, Nausea, Vomiting ( Tiffany Zuniga) GI Exam Vitals I&O Vital Signs Date Time Temp Pulse Resp B/P (MAP) Pulse Ox O2 Delivery O2 Flow Rate FiO2 06/14/17 13:07 18 06/14/17 12:07 98.3 50 18 105/62 (76) 94 06/14/17 09:11 53 06/14/17 07:32 98.1 52 20 100/62 (75) 93 06/14/17 05:06 98.1 79 18 147/84 (105) 97 06/14/17 03:25 50 06/14/17 00:41 98.0 66 18 133/74 (93) 92 06/14/17 00:03 70 06/13/17 21:13 98.7 67 18 155/85 (108) 96 06/13/17 20:01 74 06/13/17 15:05 80 06/13/17 15:04 98.0 82 18 131/78 (95) 92 06/13/17 14:43 93 21 Laboratory Test 06/13/17 16:16 06/13/17 19:32 06/14/17 00:18 06/14/17 10:45 Troponin I LESS THAN 0.02 NG/ML LESS THAN 0.02 NG/ML Urine Opiates Screen POS Urine Barbiturates Screen NEG Urine Amphetamines Screen NEG Urine Benzodiazepines Screen NEG Urine Cocaine Screen NEG Urine Cannabinoids Screen NEG White Blood Count 8.2 TH/MM3 Red Blood Count 4.86 MIL/MM3 Hemoglobin 16.7 GM/DL Hematocrit 48.5 % Mean Corpuscular Volume 99.8 FL Mean Corpuscular Hemoglobin 34.3 PG Mean Corpuscular Hemoglobin Concent 34.4 % Red Cell Distribution Width 12.8 % Platelet Count 179 TH/MM3 Mean Platelet Volume 8.6 FL Neutrophils (%) (Auto) 59.9 % Lymphocytes (%) (Auto) 30.1 % Monocytes (%) (Auto) 6.8 % Eosinophils (%) (Auto) 2.3 % Basophils (%) (Auto) 0.9 % Neutrophils # (Auto) 4.9 TH/MM3 Lymphocytes # (Auto) 2.5 TH/MM3 Monocytes # (Auto) 0.6 TH/MM3 Eosinophils # (Auto) 0.2 TH/MM3 Basophils # (Auto) 0.1 TH/MM3 CBC Comment DIFF FINAL Differential Comment Blood Urea Nitrogen 10 MG/DL Creatinine 0.87 MG/DL Random Glucose 103 MG/DL Calcium Level 8.4 MG/DL Phosphorus Level 3.1 MG/DL Magnesium Level 2.2 MG/DL Sodium Level 136 MEQ/L Potassium Level 4.2 MEQ/L Chloride Level 103 MEQ/L Carbon Dioxide Level 26.9 MEQ/L Anion Gap 6 MEQ/L Estimat Glomerular Filtration Rate 89 ML/MIN Triglycerides Level 265 MG/DL Cholesterol Level 179 MG/DL LDL Cholesterol 96 MG/DL HDL Cholesterol 30.4 MG/DL Cholesterol/HDL Ratio 5.88 RATIO Physical Examination HEENT: Pupils round and reactive to light; normocephalic; atraumatic; no jaundice. Oral cavity clean speech is clear, mild obese NECK: Neck is supple, no JVD, no lymphadenopathy. CHEST: Chest is clear rhonchi CARDIAC: Regular rate and rhythm ABDOMEN: Soft, nondistended, nontender to light palpation; no hepatosplenomegaly; bowel sounds are present in all four quadrants. EXTREMITIES: No clubbing, cyanosis, or edema. SKIN: Normal; no rash; no jaundice. 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 Mild anxiety ([place],Tiffany M. BUILDER BEAM) Assessment and Plan Assessment: (1) Heartburn ICD Codes: R12 - Heartburn (2) Atypical chest pain ICD Codes: R07.89 - Other chest pain (3) GERD with esophagitis ICD Codes: K21.0 - Gastro-esophageal reflux disease with esophagitis (4) Constipation ICD Codes: K59.00 - Constipation, unspecified (5) Gastroparesis ICD Codes: K31.84 - Gastroparesis Plan Patient has atypical symptoms of his usual chest pain related to heart disease, he is positive for some heartburn and some possible gastroparesis, states the food he eats stays in his stomach for extended periods of time. Associated with nausea and some vomiting water especially in the a.m. last EGD and colonoscopy were done somewhere in the [place] area unknown GI group and unknown results Possible gastroparesis Constipation, most of the time but does sometimes alternate with diarrhea. None now Plan Consents for EGD and colonoscopy tomorrow a.m. Nothing by mouth at midnight except for needed medications Clear liquids today, without red Jell-O GoLYTELY prep, discussed in detail if patient could tolerate Hold any blood thinners in the a.m., heparin and Brillinta. PPI Reglan by mouth Monitor labs Monitor for any acute episodes of bleeding Plan of care is based on symptoms and findings This patient was seen by myself for , written on his behalf (Tiffany Zuniga) Physician Comments Seen and examined, plan as above. will plan EGD in AM, colonoscopy was done within the last 5 years and reported as normal to the patient. (Jovani Urirate MD) Tiffany Zuniga Jun 14, 2017 14:04 Jovani Uriarte MD Jun 14, 2017 15:20
--- NOTE | 2017-06-14 14:37 | EKG ---
Date Performed: 06/14/2017 Time Performed: 04:23:44 PTAGE: 62 years EKG: SINUS BRADYCARDIA BORDERLINE ECG PREVIOUS TRACING : 06/13/2017 21.46 DOCTOR: De Engel Interpretating Date/Time 06/14/2017 14:36:36
--- NOTE | 2017-06-14 15:11 | EKG ---
Date Performed: 06/13/2017 Time Performed: 15:09:20 PTAGE: 62 years EKG: Sinus rhythm WITH SINUS ARRHYTHMIA LOW QRS VOLTAGE IN PRECORDIAL LEADS BORDERLINE ECG PREVIOUS TRACING : 05/02/2017 21.01 DOCTOR: De Engel Interpretating Date/Time 06/14/2017 15:08:56
[2017-06-14] MEDS ORDERED: PEG (High)/E-LYTE SOLN 4000 ML BTL PO ONE (16:00)
[2017-06-14] MEDS: PANTOPRAZOLE SODIUM 40 MG VIAL IV PUSH SCH (16:06)
[2017-06-14] MEDS: METOCLOPRAMIDE HCL 10 MG TAB PO SCH ×2 (16:06→21:01)
[2017-06-14] MEDS: ATORVASTATIN 10 MG TAB PO SCH (21:01)
[2017-06-14] MEDS ORDERED: ZOLPIDEM TARTRATE 5 MG TAB PO ONE (22:45)
[2017-06-15] VITALS (7 sets, daily range): BP systolic 127–161; BP diastolic 73–80; PULSE 55–76; RESP 16–21; TEMP 97.9–98.5; O2SAT 92–95
[2017-06-15] MEDS: PANTOPRAZOLE SODIUM 40 MG VIAL IV PUSH SCH (03:00)
[2017-06-15] MEDS: MORPHINE SULFATE 2 MG/ML INJ IV PUSH PRN ×2 (03:46→07:37)
[2017-06-15] MEDS: ONDANSETRON HCL 4 MG/2 ML VIAL IV PUSH PRN (03:46)
[2017-06-15] MEDS ORDERED: POVIDONE IODINE 5% (ANTISEPSIS KIT) 4 APPLICATIONS EACH NARE PRN (06:45)
[2017-06-15] MEDS ORDERED: CHLORHEXIDINE GLUCONATE 2 % 1 PACK (2 CLOTHS) TOPICAL PRN (06:45)
[2017-06-15] MEDS ORDERED: METOPROLOL TARTRATE 25 MG TAB PO PRN (06:45)
[2017-06-15] MEDS ORDERED: SODIUM CHLORID 0.9% 500 ML IV PRN (06:45)
[2017-06-15] MEDS ORDERED: LACTATED RINGER'S 1000 ML IV PRN (06:45)
[2017-06-15] MEDS: ISOSORBIDE MONONITRATE 30 MG TAB PO SCH (06:56)
[2017-06-15] MEDS: METOCLOPRAMIDE HCL 10 MG TAB PO SCH ×2 (08:00→12:00)
[2017-06-15] MEDS: RANOLAZINE 500 MG EXTENDED RELEASE TAB PO SCH (09:00)
[2017-06-15] MEDS: ASPIRIN 81 MG CHEW TAB CHEW SCH (09:00)
--- NOTE | 2017-06-15 10:03 | HHI.FPPN ---
Subjective Remarks Patient seen and examined today. He states he did not sleep well last night, leaves and is very "jittery" after he received Protonix yesterday. He reports prior to being nothing by mouth he had no problems with eating or swallowing food. He continues to have left-sided chest pain, unchanged from yesterday, has not moved or increased intensity, denies nausea, vomiting, fever, chills, abdominal pain, shortness of breath, change in bowel or bladder habits. No other complaints today. Objective Vitals Vital Signs Date Time Temp Pulse Resp B/P (MAP) Pulse Ox O2 Delivery O2 Flow Rate FiO2 06/15/17 07:44 98.1 65 21 136/78 (97) 92 06/15/17 04:15 98.5 58 18 131/74 (93) 94 06/15/17 04:00 57 06/15/17 03:51 14 06/15/17 01:26 97.9 55 20 127/73 (91) 95 06/15/17 00:01 56 06/14/17 22:55 95 06/14/17 21:18 98.0 58 18 123/67 (85) 93 06/14/17 20:10 68 06/14/17 16:18 98.2 54 18 117/70 (86) 95 06/14/17 15:17 54 06/14/17 12:07 98.3 50 18 105/62 (76) 94 Result Diagram: 06/14/17 1045 06/14/17 1045 Objective Remarks GENERAL: This is a well-nourished, well-developed patient, in no apparent distress. SKIN: No rashes, ecchymoses or lesions. Cool and dry. EYES: Extraocular motions grossly intact. CARDIOVASCULAR: Regular rate and rhythm without murmurs RESPIRATORY: Clear to auscultation. Breath sounds equal bilaterally. No wheezes to auscultation GASTROINTESTINAL: Abdomen soft, non-tender, nondistended. No guarding. MUSCULOSKELETAL: Extremities without edema. Grossly normal ROM NEUROLOGICAL: Awake and alert. Cranial nerves grossly intact. Motor and sensory grossly within normal limits A/P Assessment and Plan 62-year-old male with history of coronary artery disease, HIV presented with chest pain: Problem List: (1) Chest pain ICD Codes: R07.9 - Chest pain, unspecified Plan: -ACS rule out -EKG's reassuring -Troponins x2 <0.02 -Continue telemetry -PRN Nitroglycerin -Cardiology consulted -Atypical chest pain. No evidence of ACS.GI work-up -Conitnue CAD treatment -Increase activity -f/u with [facility] -GI consulted * EGD and colonoscopy 06/15 * PPI * Reglan Impression: Long history of CAD with multiple stent placements. Pt. states CP initially resolved with nitro and morphine. Cath on 05/02/17 showed EF 45%. EKG showed normal sinus rhythm. No ST changes CXR showed no acute disease Labs on admission: CBC unremarkable CMP unremarkable UDS + opiates, otherwise negative (2) CAD (coronary artery disease) ICD Codes: I25.10 - Atherosclerotic heart disease of [place] coronary artery without angina pectoris Status: Chronic Plan: Impression: Patient with PMH CAD s/p 10 stents per patient -Continue Metoprolol 25mg BID -Continue Brilinta 90mg BID -Continue ASA 81mg daily -Continue Imdur 30mg daily -Continue Atorvastatin 40mg HS -Continue Ranexa -PRN nitroglycerin -Discuss with patient regarding whether NIRANJAN previously utilized (3) HIV (human immunodeficiency virus infection) ICD Codes: B20 - Human immunodeficiency virus [HIV] disease Status: Chronic Plan: Chronic history of HIV. Unaware of last CD4 counts. -Continue home retrovirals- Iva -Will discuss history further to evaluate whether repeat CD4 /viral load testing needed (4) Polycythemia ICD Codes: D75.1 - Secondary polycythemia Status: Chronic Plan: Impression: Hemoglobin 18.5 on admission; HCT 52.4. 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 Chronically elevated. On last admission, hematology was consulted, who is working him up for polycythemia vera vs secondary erythrocytosis. JAK2 mutation negative at last hospitalization. EPO 21.6 -Follow CBCs -Heparin ppx q8hrs (5) FEN Status: Acute Plan: Fluids: tolerating PO Electrolytes: wnl, continue to monitor Nutrition: Will give clear liquid diet until GI evaluation; can advance if patient desires DVT ppx: heparin q8hrs Problem Qualifiers (1) Chest pain: Qualified Codes: R07.89 - Other chest pain Boy Wells MD R1 Jun 15, 2017 10:03
[2017-06-15] MEDS ORDERED: LIDOCAINE HCL 1% PF 5 ML SYRINGE OTHER ONE (12:00)
[2017-06-15] MEDS ORDERED: SUCCINYLCHOLINE CHLORIDE 100 MG/5 ML SYRINGE IV PUSH ONE (12:00)
[2017-06-15] MEDS ORDERED: ONDANSETRON HCL 4 MG/2 ML VIAL IV PUSH ONE (12:00)
[2017-06-15] MEDS ORDERED: DEXAMETHASONE SOD PHOS 4 MG/ML VIAL IV ONE (12:00)
[2017-06-15] MEDS ORDERED: PROPOFOL 200 MG/20 ML AMP IV ONE (12:00)
--- NOTE | 2017-06-15 12:30 | GIPROC ---
[facility] [place] [address] [facility]. [facility], [address] EGD PROCEDURE REPORT EXAM DATE: 06/15/2017 PATIENT NAME: Juan Branch MR #: [id number] BIRTHDATE: 1955 ATTENDING: Jovani Uriarte MD ORDER #: [id number] CLASS A LINEMAN: Ingris Palmer and Acacia Lind STATUS: inpatient INDICATIONS: The patient is a 62 yr old male here for an EGD due to epigastric abdominal pain PROCEDURE PERFORMED: EGD w/ biopsy MEDICATIONS: None and Per Anesthesia. TOPICAL ANESTHETIC: none CONSENT: The patient understands the risks and benefits of the procedure and understands that these risks include, but are not limited to: sedation, allergic reaction, infection, perforation and/or bleeding. Alternative means of evaluation and treatment include, among others: physical exam, x-rays, and/or surgical intervention. The patient elects to proceed with this endoscopic procedure. medical equipment was checked for proper function. Hand hygiene and appropriate measures for infection prevention was taken. After the risks, benefits and alternatives of the procedure were thoroughly explained, Informed consent was verified, confirmed and timeout was successfully executed by the treatment team. The patient was anesthetized with topical anesthesia and the Pentax [id number] endoscope was introduced through the mouth and advanced to the second portion of the duodenum. Retroflexion was performed and was normal The gastroscope was then slowly withdrawn and removed. ESOPHAGUS: There was [place] Class A esophagitis noted. STOMACH: There was chronic moderate gastritis in the entire examined stomach. Multiple biopsies were performed using cold forceps. Sample sent for histology. DUODENUM: Mild duodenal inflammation was found in the 2nd part of the duodenum and duodenal bulb. ADVERSE EVENTS: There were no complications. IMPRESSIONS: 1. There was [place] Class A esophagitis noted 2. There was chronic gastritis in the entire examined stomach; multiple biopsies were performed 3. Duodenal inflammation was found in the 2nd part of the duodenum and duodenal bulb 4. Retroflexion was performed and was normal RECOMMENDATIONS: 1. Await biopsy results. Biopsy results will not be ready for 7-10 days. If you don't hear from us in two weeks, call our office for biopsy results. 2. Continue PPI PATIENT CONDITION: stable DISPOSITION: Observation REPEAT EXAM: NONE Jovani Uriarte MD eSigned: Jovani Uriarte MD 06/15/2017 12:29 PM cc: PATIENT NAME: Juan Branch MR#: [id number]
[2017-06-15] MEDS ORDERED: DO NOT ADM ANY ANTICOAGULANT DRUGS PRN (13:38)
--- NOTE | 2017-06-15 15:58 | PD.AMA ---
Against Medical Advice Note Diagnosis: (1) Chest pain Discharge Disposition: Against Medical Advice Pt Condition on Discharge: Stable AMA Statement Patient Juan Branch has decided to leave the hospital against medical advice. This patient has the capacity to refuse care and understands the risks of leaving, including permanent disability and/or , and has had an opportunity to ask questions about his condition. The patient has been informed that he may return for care at any time, and follow up has been arranged/ advised. Discussed with Dr. Nolen, patient will not be accepted back to the Resident service. Boy Wells MD R1 Jun 15, 2017 15:58
== END 2017-06-15 15:34 | disposition left against medical advice (07) ==
LOC: NEDDLT 12:18 → NEPFCDU 12:28
PROVIDERS: ADMIT Family Medicine; ATTEND Family Medicine
DX: R12 Heartburn (principal); R07.89 Other chest pain; K21.0 Gastro-esophageal reflux disease with esophagitis; K31.84 Gastroparesis; K29.50 Unspecified chronic gastritis without bleeding; K29.80 Duodenitis without bleeding; I25.10 Atherosclerotic heart disease of native coronary artery without angina pectoris; I82.509 Chronic embolism and thrombosis of unspecified deep veins of unspecified lower extremity; Z86.73 Personal history of transient ischemic attack (TIA), and cerebral infarction without residual deficits; R06.02 Shortness of breath; K59.00 Constipation, unspecified; G47.30 Sleep apnea, unspecified; M54.30 Sciatica, unspecified side; G62.9 Polyneuropathy, unspecified; D75.1 Secondary polycythemia; Z95.5 Presence of coronary angioplasty implant and graft; Z21 Asymptomatic human immunodeficiency virus [HIV] infection status
CPT/HCPCS: 00740; 43239; 71010; 80048; 80061; 80307; 82550; 82552; 83735; 83880; 84100; 84484; 85025; 85379; 85610; 85730; 88305; 88312; 93005; 96372; 96374; 96375; 96376; 99285; C9113; G0378; J0330; J1100; J1644; J2270; J2405